=== PATIENT | male | born 1960 | race Caucasian/White ===

== ENCOUNTER 2016-10-17 19:53 | Emergency (ER) | payer MEDICARE, OTHER ==
[2016-10-17 20:23] VITALS: O2SAT 95
[2016-10-17] MEDS ORDERED: Rocephin 1000 MG INJ IM ONE (20:28)
[2016-10-17] MEDS ORDERED: BACIGUENT PACKET TP ONE (20:28)
[2016-10-17] MEDS ORDERED: XYLOCAINE 1% HCL 20 ML MDV IJ ONE (20:28)
[2016-10-17] MEDS ORDERED: BACIGUENT PACKET ONE (20:31)
[2016-10-17] MEDS ORDERED: XYLOCAINE 1% HCL 20 ML MDV ONE (20:31)
[2016-10-17] MEDS ORDERED: Rocephin 1000 MG INJ ONE (20:31)
--- NOTE | 2016-10-17 20:34 | ERPHSYRPT ---
- History of Present Illness Time Seen by Provider: 10/17/16 20:25 Source: patient Exam Limitations: no limitations Patient Subjective Stated Complaint: states that he "laid his right finger open sharpening a chainsaw at 1400 today" - continues to bleed and figures that he needs stitches - also wants to check out a "spider bite" on his right knee that he noticed on the right knee Triage Nursing Assessment: ambulatory to treatment area - steady gait - moves all extremities with equal strength. alert/oriented - flat affect. skin pwd - 3-4cm laceration right 2nd digit, small raised area of redness and tenderness on the right interior knee. resps easy non-labored Physician History: ABOUT 6 HOURS AGO PT LACERATED HIS RIGHT INDEX FINGER ON A CHAIN AT HOME THAT HE WAS FILING FOR A CHAIN SAW. PT ALSO C/O A SPIDER BITE ON HIS RIGHT KNEE SINCE YESTERDAY. PT DENIES FEVER, CHILLS, NAUSEA, VOMITING, CHEST PAIN. Allergies/Adverse Reactions: No Known Drug Allergies Allergy (Verified 10/17/16 20:15) Home Medications: Lisinopril 10 mg [Zestril 10 MG] 10 mg PO DAILY 05/26/13 [History] Aspirin EC 325 mg [Ecotrin 325 MG] 325 mg PO DAILY 12/10/15 [History] Hydrocodone Bit/Acetaminophen [[place] 7.5-325 Tablet] 1 each PO TID 12/10/15 [ History] Gabapentin 600 mg PO TID 10/17/16 [History] Metformin HCl [Glucophage] 1,000 mg PO BID 10/17/16 [History] Hx Tetanus, Diphtheria Vaccination/Date Given: Yes Hx Influenza Vaccination/Date Given: No Hx Pneumococcal Vaccination/Date Given: No Immunizations Up to Date: Yes - Review of Systems Constitutional: No Fever, No Chills Cardiac: No Chest Pain Abdominal/Gastrointestinal: No Nausea, No Vomiting Skin: Other (LACERATION TO RIGHT INDEX FINGER; SPIDER BITE OF RIGHT KNEE.) All Other Systems: Reviewed and Negative - Past Medical History Pertinent Past Medical History: Yes Neurological History: No Pertinent History ENT History: No Pertinent History Cardiac History: Angina, Hypertension, Peripheral Vascular Disease Respiratory History: No Pertinent History Endocrine Medical History: Diabetes Type II Musculoskeletal History: Degenerative Disk Disease, Osteoarthritis, Other GI Medical History: No Pertinent History History: Other Psycho-Social History: No Pertinent History Male Reproductive Disorders: No Pertinent History Other Medical History: kidney stones, pinched nerve,CHRONIC BACK PAIN - Past Surgical History Past Surgical History: Yes Neuro Surgical History: No Pertinent History Cardiac: Cardiac Catheterization, Vascular Surgery Respiratory: No Pertinent History Gastrointestinal: No Pertinent History Genitourinary: No Pertinent History, Other Musculoskeletal: Orthopedic Surgery Male Surgical History: No Pertinent History Other Surgical History: KIDNEY STONE. leg bypass with stent in leg. dental surgery. BACK FUSION SURGERY. neck fusion - Social History Smoking Status: Never smoker How long have you smoked: 42 yrs Exposure to second hand smoke: No Alcohol Use: None Drug Use: none Patient Lives Alone: No Significant Family History: hypertension - Nursing Vital Signs Nursing Vital Signs: Initial Vital Signs Temperature 97.9 F Temperature Source Oral Pulse Rate 80 Respiratory Rate 14 Blood Pressure [Left Arm] 126/78 Pain Intensity 0 - Physical Exam General Appearance: alert Eyes, Ears, Nose, Throat Exam: TMs normal, pharynx normal, moist mucous membranes Neck Exam: normal inspection Cardiovascular/Respiratory Exam: normal breath sounds, heart sounds normal Abdominal Exam: soft (B.S. NORMAL) Back Exam: normal range of motion Shoulder Exam: normal ROM Elbow/Forearm Exam: normal ROM Wrist Exam: normal ROM Hand Exam: normal ROM, laceration (3 CM LACERATION OVER PIP OF RIGHT INDEX FINGER; ALL RIGHT HAND DIGITS HAVE FULL SENSATION, CAPILLARY REFILL AND ROM.) Neuro/Tendon Exam: normal sensation, normal motor functions, normal tendon functions Mental Status Exam: alert Skin Exam: other (RIGHT KNEE HAS A 1 CM DIAMETER INSECT BITE OVER THE ANTERIOMEDIAL ASPECT WITHOUT FLUCTUATION OR DISCHARGE; SCATTERED INSECT BITES OVER LEGS AND BACK.) SpO2 Interpretation: normal SpO2: 95 Oxygen Delivery: Room Air Procedures - Laceration/Wound Repair Right Finger Wound Location: Right, hand (INDEX FINGER) Wound Length (cm): 3 Wound's Depth, Shape: superficial Wound Explored: clean Irrigated: Yes Hibiclens Prep: Yes Anesthesia: 1% Lidocaine Volume Anesthetic (ccs): 2 Wound Repaired With: sutures Suture Size/Type: 4-0, ethilon Number of Sutures: 10 Layer Closure?: No - Course Nursing assessment & vital signs reviewed: Yes Ordered Tests: Active Orders 24 hr Category Date Time Status Prepare for Sutures STAT Care 10/17/16 20:28 Active Sutures STAT Care 10/17/16 20:28 Active Wound Care STAT Care 10/17/16 20:28 Active Medication Summary Discontinued Medications Generic Name Dose Route Start Last Admin Trade Name Melinda PRN Reason Stop Dose Admin Bacitracin 0.9 gm 10/17/16 20:28 10/17/16 20:36 Baciguent Packet TP 10/17/16 20:29 0.9 gm STAT ONE Administration Bacitracin Confirm 10/17/16 20:31 Baciguent Packet Administered 10/17/16 20:32 Dose 1 gm .ROUTE .STK-MED ONE Ceftriaxone Sodium 1,000 mg 10/17/16 20:28 10/17/16 20:36 Rocephin 1000 Mg Inj IM 10/17/16 20:29 1,000 mg STAT ONE Administration Ceftriaxone Sodium Confirm 10/17/16 20:31 Rocephin 1000 Mg Inj Administered 10/17/16 20:32 Dose 1,000 mg .ROUTE .STK-MED ONE Lidocaine HCl 5 ml 10/17/16 20:28 10/17/16 20:36 Xylocaine 1% Hcl 20 Ml Mdv IJ 10/17/16 20:29 5 ml STAT ONE Administration Lidocaine HCl Confirm 10/17/16 20:31 Xylocaine 1% Hcl 20 Ml Mdv Administered 10/17/16 20:32 Dose 1 ml .ROUTE .STK-MED ONE - Departure Time of Disposition: 21:13 Departure Disposition: Home Clinical Impression: 3 CM LACERATION TO RIGHT INDEX FINGER, INSECT BITES Condition: Fair Critical Care Time: No Instructions: Care for a Laceration After Repair Additional Instructions: FOLLOW UP WITH PRIVATE DOCTOR TOMORROW. KEEP CLEAN & DRY. NEOSPORIN & BANDAGE DAILY TO RIGHT INDEX FINGER WOUND FOR 10 DAYS. HAVE SUTURES REMOVED IN 10 DAYS. Prescriptions: Cephalexin Monohydrate [Keflex] 500 mg PO TID #30 capsule
[2016-10-17 21:17] VITALS: BP 120/73; PULSE 72
== END 2016-10-17 21:23 | disposition home or self-care (01) ==
LOC: ED 19:53
PROC: 0HQFXZZ Repair Right Hand Skin, External Approach (ICD-10-PCS; principal; 2016-10-17)
DX: S61.210A Laceration without foreign body of right index finger without damage to nail, initial encounter (principal); W31.2XXA Contact with powered woodworking and forming machines, initial encounter; S80.261A Insect bite (nonvenomous), right knee, initial encounter; W57.XXXA Bitten or stung by nonvenomous insect and other nonvenomous arthropods, initial encounter
CPT/HCPCS: 12002; 96372; 99284; J0696; A9270-GY

== ENCOUNTER 2016-10-28 19:57 | Emergency (ER) | payer MEDICARE, OTHER ==
--- NOTE | 2016-10-28 20:56 | ERPHSYRPT ---
- History of Present Illness Time Seen by Provider: 10/28/16 20:37 Source: patient Exam Limitations: no limitations Physician History: The patient is a 56-year-old male with a friend complaining of a sudden onset of left leg pain that is similar to the pain he had when he had arterial claudication. The pain began about an hour ago. It stretches from the top of his leg down to his feet. His left foot is slightly cool to the touch. He had an artificial vein placed in his left upper leg in April. 2 or 3 months before that he also had a stent placed in his left upper leg. He's had a balloon angioplasty of the left upper leg as well. He is a smoker and continues to smoke. His past medical history is significant for peripheral arterial disease, diabetes, hypertension, chronic back pain. Method of Injury: unknown Occurred: just prior to arrival Quality: sharpness, stabbing Severity of Pain-Max: moderate Severity of Pain-Current: mild Lower Extremities Pain: leg: left, thigh: left, foot: left, ankle: left Modifying Factors: Improves With: nothing Associated Symptoms: other (pale and cool) Allergies/Adverse Reactions: morphine Adverse Reaction (Verified 10/28/16 20:51) Tightness in Chest tramadol Adverse Reaction (Verified 10/28/16 20:51) Home Medications: Lisinopril 10 mg [Zestril 10 MG] 10 mg PO BID 05/26/13 [History] Aspirin EC 325 mg [Ecotrin 325 MG] 325 mg PO DAILY 12/10/15 [History] Hydrocodone Bit/Acetaminophen [[place] 7.5-325 Tablet] 1 each PO TID 12/10/15 [ History] Gabapentin 600 mg PO TID 10/17/16 [History] Metformin HCl [Glucophage] 1,000 mg PO BID 10/17/16 [History] Hx Tetanus, Diphtheria Vaccination/Date Given: Yes Hx Influenza Vaccination/Date Given: No Hx Pneumococcal Vaccination/Date Given: No - Review of Systems Constitutional: No Fever, No Chills Eyes: No Symptoms Ears, Nose, & Throat: No Symptoms Respiratory: No Cough, No Dyspnea Cardiac: No Chest Pain, No Edema, No Syncope Abdominal/Gastrointestinal: No Abdominal Pain, No Nausea, No Vomiting, No Diarrhea Genitourinary Symptoms: No Dysuria Musculoskeletal: No Back Pain, No Neck Pain Skin: No Rash Neurological: No Dizziness, No Focal Weakness, No Sensory Changes Psychological: No Symptoms Endocrine: No Symptoms Hematologic/Lymphatic: Blood Clots Immunological/Allergic: No Symptoms All Other Systems: Reviewed and Negative - Past Medical History Pertinent Past Medical History: Yes Neurological History: No Pertinent History ENT History: No Pertinent History Cardiac History: Angina, Hypertension, Peripheral Vascular Disease Respiratory History: No Pertinent History Endocrine Medical History: Diabetes Type II Musculoskeletal History: Degenerative Disk Disease, Osteoarthritis, Other GI Medical History: No Pertinent History History: Other Psycho-Social History: No Pertinent History Male Reproductive Disorders: No Pertinent History Other Medical History: kidney stones, pinched nerve,CHRONIC BACK PAIN - Past Surgical History Past Surgical History: Yes Neuro Surgical History: No Pertinent History Cardiac: Cardiac Catheterization, Vascular Surgery Respiratory: No Pertinent History Gastrointestinal: No Pertinent History Genitourinary: No Pertinent History, Other Musculoskeletal: Orthopedic Surgery Male Surgical History: No Pertinent History Other Surgical History: KIDNEY STONE. leg bypass with stent in leg. dental surgery. BACK FUSION SURGERY. neck fusion - Social History Smoking Status: Never smoker How long have you smoked: 42 yrs Exposure to second hand smoke: No Alcohol Use: None Drug Use: none Patient Lives Alone: No Significant Family History: hypertension - Nursing Vital Signs Nursing Vital Signs: Initial Vital Signs Temperature 98.5 F Temperature Source Oral Pulse Rate 71 Respiratory Rate 18 Blood Pressure [Right Arm] 141/84 Pain Intensity [Left Foot] 10 Pain Intensity 7 - Physical Exam General Appearance: mild distress Eyes, Ears, Nose, Throat Exam: moist mucous membranes Neck Exam: non-tender, supple Cardiovascular/Respiratory Exam: chest non-tender, normal breath sounds, regular rate/rhythm, no respiratory distress Gastrointestinal/Abdominal Exam: non-tender, guarding Back Exam: normal inspection, No vertebral tenderness Hips Exam: bilateral: non-tender Legs Exam: bilateral leg: non-tender Knees Exam: bilateral knee: non-tender Ankle Exam: left ankle: other (Examination of the left leg when supine shows increasing purple color of the leg from the knee to the toes the longer the leg is elevated. The left foot is slightly cool compared to the right foot. Doppler evaluation is unable to identify a pulse at the dorsalis pedis and the posterior tibialis of the left foot.) Neuro/Tendon Exam: normal sensation, normal motor functions Mental Status Exam: alert, oriented x 3, cooperative Skin Exam: pale (left leg) Ordered Tests: Active Orders 24 hr Category Date Time Status IV Insertion STAT Care 10/28/16 21:05 Active CBC W DIFF Stat Lab 10/28/16 21:10 Completed CMP Stat Lab 10/28/16 21:10 Completed D-DIMER QUANTITATION Stat Lab 10/28/16 21:10 Completed Lactic Acid Stat Lab 10/28/16 21:10 Completed PT INR [PROTIME WITH INR] Stat Lab 10/28/16 21:10 Completed PTT Stat Lab 10/28/16 21:10 Completed Medication Summary Discontinued Medications Generic Name Dose Route Start Last Admin Trade Name Melinda PRN Reason Stop Dose Admin Nalbuphine HCl 10 mg 10/28/16 21:43 10/28/16 21:48 Nubain 10 Mg/Ml IV 10/28/16 21:44 10 mg STAT ONE Administration Nalbuphine HCl Confirm 10/28/16 21:45 Nubain 10 Mg/Ml Administered 10/28/16 21:46 Dose 10 mg .ROUTE .STK-MED ONE Lab/Rad Data: Laboratory Result Diagrams 10/28/16 21:10 10/28/16 21:10 Laboratory Results 10/28/16 10/28/16 10/28/16 Range/Units 21:10 21:10 21:10 WBC (4.0-10.5) K/mm3 RBC (4.1-5.6) M/mm3 Hgb (12.5-18.0) gm/dl Hct (42-50) % MCV (78-100) fl MCH (26-32) pg MCHC (32-36) g/dl RDW (11.5-14.0) % Plt Count (150-450) K/mm3 MPV (6-9.5) fl Gran % (36.0-66.0) % Lymphocytes % (24.0-44.0) % Monocytes % (0.0-12.0) % Eosinophils % (0.00-5.0) % Basophils % (0.0-0.4) % Basophils # (0-0.4) INR 1.10 (0.8-3.0) APTT 27.0 (24.1-36.1) SECONDS D-Dimer 5731 H* (0-500) ng/mL Sodium 145 (136-145) mEq/L Potassium 4.2 (3.5-5.1) mEq/L Chloride 106 (98-107) mEq/L Carbon Dioxide 27.1 (21-32) mEq/L Anion Gap 15.8 H (5-15) MEQ/L BUN 26 H (9-20) mg/dL Creatinine 1.17 (0.55-1.30) mg/dl Estimated GFR > 60 ML/MIN Glucose 88 (70-110) MG/DL Lactic Acid (0.4-2.0) Calcium 10.1 (8.5-10.1) mg/dL Total Bilirubin 0.30 (0.2-1.0) mg/dL AST 21 (15-37) U/L ALT 21 (12-78) U/L Alkaline Phosphatase 52 (46-116) U/L Serum Total Protein 7.0 (6.4-8.2) gm/dL Albumin 3.8 (3.4-5.0) g/dL 10/28/16 10/28/16 Range/Units 21:10 21:10 WBC 13.2 H (4.0-10.5) K/mm3 RBC 4.48 (4.1-5.6) M/mm3 Hgb 13.7 (12.5-18.0) gm/dl Hct 41.0 L (42-50) % MCV 91.5 (78-100) fl MCH 30.6 (26-32) pg MCHC 33.4 (32-36) g/dl RDW 14.9 H (11.5-14.0) % Plt Count 222 (150-450) K/mm3 MPV 9.8 H (6-9.5) fl Gran % 55.8 (36.0-66.0) % Lymphocytes % 30.4 (24.0-44.0) % Monocytes % 10.7 (0.0-12.0) % Eosinophils % 2.6 (0.00-5.0) % Basophils % 0.5 (0.0-0.4) % Basophils # 0.07 (0-0.4) INR (0.8-3.0) APTT (24.1-36.1) SECONDS D-Dimer (0-500) ng/mL Sodium (136-145) mEq/L Potassium (3.5-5.1) mEq/L Chloride (98-107) mEq/L Carbon Dioxide (21-32) mEq/L Anion Gap (5-15) MEQ/L BUN (9-20) mg/dL Creatinine (0.55-1.30) mg/dl Estimated GFR ML/MIN Glucose (70-110) MG/DL Lactic Acid 0.9 (0.4-2.0) Calcium (8.5-10.1) mg/dL Total Bilirubin (0.2-1.0) mg/dL AST (15-37) U/L ALT (12-78) U/L Alkaline Phosphatase (46-116) U/L Serum Total Protein (6.4-8.2) gm/dL Albumin (3.4-5.0) g/dL - Progress Progress: improved Progress Note: 10/28/16 22:20 After resting in the ER, the patient began to feel better. The patient refused transfer to a higher level care facility. The patient states he will go home and call Dr. Mcmahon for follow-up. 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 You have declined transfer tonight for such further evaluation and treatment. You were given Nubain 10 mg IV in the ER. Please follow-up tomorrow with a surgeon.
[2016-10-28 21:15] LABS: BASOPHIL % 0.5 % (0.0-0.4); Eosinophil % 2.6 % (0.00-5.0); Granulocytes % 55.8 % (36.0-66.0); Lymphocytes % 30.4 % (24.0-44.0); Mean Cell Volume 91.5 fl (78-100); Mean Corpuscular Hemoglobin 30.6 pg (26-32); Mean Platelet Volume 9.8 fl (6-9.5); Monocytes % 10.7 % (0.0-12.0); Platelet Count 222 K/mm3 (150-450); Red Blood Count 4.48 M/mm3 (4.1-5.6); Red Cell Distribution Width 14.9 % (11.5-14.0); White Blood Count 13.2 K/mm3 (4.0-10.5)
[2016-10-28 21:42] VITALS: BP 141/84; PULSE 71; O2SAT 95
[2016-10-28] MEDS ORDERED: Nubain 10 MG/ML IV ONE (21:43)
[2016-10-28 21:44] LABS: INR 1.1 (0.8-3.0); PROTIME 12.4 SECONDS (8.83-12.87)
[2016-10-28] MEDS ORDERED: Nubain 10 MG/ML ONE (21:45)
[2016-10-28 21:52] LABS: ALBUMIN 3.8 g/dL (3.4-5.0); ALKALINE PHOSPHATASE 52 U/L (46-116); ANION GAP 15.8 MEQ/L (5-15); BLOOD UREA NITROGEN 26 mg/dL (9-20); CHLORIDE 106 mEq/L (98-107); Carbon Dioxide 27.1 mEq/L (21-32); Glucose 88 MG/DL (70-110); Potassium 4.2 mEq/L (3.5-5.1); SGOT/AST 21 U/L (15-37); SGPT/ALT 21 U/L (12-78); SODIUM 145 mEq/L (136-145)
== END 2016-10-28 22:32 | disposition home or self-care (01) ==
LOC: ED 19:57
DX: I70.212 Atherosclerosis of native arteries of extremities with intermittent claudication, left leg (principal); I10 Essential (primary) hypertension; I73.9 Peripheral vascular disease, unspecified; M79.605 Pain in left leg
CPT/HCPCS: 36000; 36415; 80053; 83605; 85025; 85379; 85610; 85730; 96374; 99283; 99284; J2300

== ENCOUNTER 2016-11-10 16:06 | Emergency (ER) | payer MEDICARE, OTHER ==
[2016-11-10] MEDS ORDERED: BENADRYL 50 MG/ML IV ONE (16:32)
[2016-11-10] MEDS ORDERED: Hydromorphone 1 mg/ml Ampule IV ONE ×2 (16:32→17:57)
[2016-11-10] MEDS ORDERED: Hydromorphone 1 mg/ml Ampule ONE ×2 (16:46→17:58)
[2016-11-10] MEDS ORDERED: BENADRYL 50 MG/ML ONE (16:46)
--- NOTE | 2016-11-10 17:19 | ERPHSYRPT ---
- History of Present Illness Time Seen by Provider: 11/10/16 16:18 Source: patient Patient Subjective Stated Complaint: pt states he had vascular surgery to remove a dvt in left leg. pt states he now has swelling and pain in left foot. denies any injury. Triage Nursing Assessment: pt pale, warm, dry. insicion intact. wound vac in place. swelling to left foot noted. Physician History: CC: swelling of the foot hx: 56 y/o patient of Dr Magana. He had recent arterial occlusion of left leg arteries and grafts. He had compartment syndrome. He had fasciotomy and had surgical procedures at [facility] and has wound vac. He was supposed to go home on xarelto but has not filled it. He has [facility]HC. He has some increased swelling of the left foot. No fever. Wound doing well. No chest pain or dyspnea. Pain is doing ok. Allergies/Adverse Reactions: morphine Adverse Reaction (Verified 11/10/16 16:27) Tightness in Chest tramadol Adverse Reaction (Verified 11/10/16 16:27) Home Medications: Lisinopril 10 mg [Zestril 10 MG] 10 mg PO BID 05/26/13 [History] Aspirin EC 325 mg [Ecotrin 325 MG] 325 mg PO DAILY 12/10/15 [History] Gabapentin 600 mg PO TID 10/17/16 [History] Metformin HCl [Glucophage] 1,000 mg PO BID 10/17/16 [History] Oxycodone HCl/Acetaminophen [Oxycodon-Acetaminophen 7.5-325] 2 each PO Q6-8HPRN PRN 11/10/16 [History] Hx Tetanus, Diphtheria Vaccination/Date Given: Yes Hx Influenza Vaccination/Date Given: Yes Hx Pneumococcal Vaccination/Date Given: Yes - Review of Systems Constitutional: No Fever, No Chills Respiratory: No Dyspnea Cardiac: No Chest Pain Musculoskeletal: No Fall, No Injury All Other Systems: Reviewed and Negative - Past Medical History Pertinent Past Medical History: Yes Neurological History: No Pertinent History ENT History: No Pertinent History Cardiac History: Angina, Hypertension, Peripheral Vascular Disease Respiratory History: No Pertinent History Endocrine Medical History: Diabetes Type II Musculoskeletal History: Degenerative Disk Disease, Osteoarthritis, Other GI Medical History: No Pertinent History History: Other Psycho-Social History: No Pertinent History Male Reproductive Disorders: No Pertinent History Other Medical History: kidney stones, pinched nerve,CHRONIC BACK PAIN - Past Surgical History Past Surgical History: Yes Neuro Surgical History: No Pertinent History Cardiac: Cardiac Catheterization, Vascular Surgery Respiratory: No Pertinent History Gastrointestinal: No Pertinent History Genitourinary: No Pertinent History, Other Musculoskeletal: Orthopedic Surgery Male Surgical History: No Pertinent History Other Surgical History: KIDNEY STONE. leg bypass with stent in leg. dental surgery. BACK FUSION SURGERY. neck fusion - Social History Smoking Status: Former smoker How long have you smoked: 42 yrs Exposure to second hand smoke: No Alcohol Use: None Drug Use: none Patient Lives Alone: No Significant Family History: hypertension - Nursing Vital Signs Nursing Vital Signs: Initial Vital Signs Temperature 97.9 F 11/10/16 16:15 Pulse Rate 76 11/10/16 16:15 Respiratory Rate 18 11/10/16 16:15 Blood Pressure 146/87 11/10/16 16:15 O2 Sat by Pulse Oximetry 98 11/10/16 16:15 Pain Scale Pain Intensity 9 - Physical Exam General Appearance: alert Eyes, Ears, Nose, Throat Exam: moist mucous membranes Neck Exam: supple Cardiovascular/Respiratory Exam: normal breath sounds, regular rate/rhythm Gastrointestinal/Abdominal Exam: non-tender, soft Neuro/Tendon Exam: normal sensation, normal motor functions Mental Status Exam: alert, oriented x 3, cooperative Skin Exam: warm, dry SpO2: 96 Oxygen Delivery: Room Air Comments: Wound vac on long length left leg. There is edema of the left foot and some of the leg. Not tight. Minimal erythema along incision line. Femoral pulse intact. DP pulse dopplerable but not palpable. PT pulse palpable. No severe pain with passive movement of the ankle. - Course Nursing assessment & vital signs reviewed: Yes Ordered Tests: Active Orders 24 hr Category Date Time Status Clean Catch Urine Specimen STAT Care 11/10/16 16:32 Active IV Insertion STAT Care 11/10/16 16:32 Active CBC W DIFF Stat Lab 11/10/16 16:45 Completed CMP Stat Lab 11/10/16 16:45 Completed Manual Differential NC Stat Lab 11/10/16 16:45 Completed UA W/RFX UR CULTURE Stat Lab 11/10/16 17:22 Completed Medication Summary Discontinued Medications Generic Name Dose Route Start Last Admin Trade Name Freq PRN Reason Stop Dose Admin Diphenhydramine HCl 25 mg 11/10/16 16:32 11/10/16 16:47 Benadryl 50 Mg/Ml IV 11/10/16 16:33 25 mg STAT ONE Administration Diphenhydramine HCl Confirm 11/10/16 16:46 Benadryl 50 Mg/Ml Administered 11/10/16 16:47 Dose 50 mg .ROUTE .STK-MED ONE Hydromorphone HCl 1 mg 11/10/16 16:32 11/10/16 16:47 Hydromorphone 1 Mg/Ml Ampule IV 11/10/16 16:33 1 mg STAT ONE Administration Hydromorphone HCl Confirm 11/10/16 16:46 Hydromorphone 1 Mg/Ml Ampule Administered 11/10/16 16:47 Dose 1 mg .ROUTE .STK-MED ONE Hydromorphone HCl 1 mg 11/10/16 17:57 11/10/16 18:02 Hydromorphone 1 Mg/Ml Ampule IV 11/10/16 17:58 1 mg STAT ONE Administration Hydromorphone HCl Confirm 11/10/16 17:58 Hydromorphone 1 Mg/Ml Ampule Administered 11/10/16 17:59 Dose 1 mg .ROUTE .STK-MED ONE Lab/Rad Data: Laboratory Result Diagrams 11/10/16 16:45 11/10/16 16:45 Laboratory Results 11/10/16 11/10/16 11/10/16 Range/Units 17:22 16:45 16:45 WBC 11.5 H (4.0-10.5) K/mm3 RBC 3.32 L (4.1-5.6) M/mm3 Hgb 10.1 L (12.5-18.0) gm/dl Hct 30.9 L (42-50) % MCV 93.1 (78-100) fl MCH 30.4 (26-32) pg MCHC 32.7 (32-36) g/dl RDW 14.2 H (11.5-14.0) % Plt Count 703 H (150-450) K/mm3 MPV 9.3 (6-9.5) fl Sodium 139 (136-145) mEq/L Potassium 3.9 (3.5-5.1) mEq/L Chloride 103 (98-107) mEq/L Carbon Dioxide 28.0 (21-32) mEq/L Anion Gap 12.1 (5-15) MEQ/L BUN 13 (9-20) mg/dL Creatinine 1.18 (0.55-1.30) mg/dl Estimated GFR > 60 ML/MIN Glucose 87 (70-110) MG/DL Calcium 9.1 (8.5-10.1) mg/dL Total Bilirubin 0.20 (0.2-1.0) mg/dL AST 38 H (15-37) U/L ALT 54 (12-78) U/L Alkaline Phosphatase 92 (46-116) U/L Serum Total Protein 6.8 (6.4-8.2) gm/dL Albumin 2.8 L (3.4-5.0) g/dL Ur Collection Type CLEAN CATCH Urine Color YELLOW (YELLOW) Urine Appearance CLEAR (CLEAR) Urine pH 5.0 (5-6) Ur Specific [place] 1.020 (1.005-1.025) Urine Protein NEGATIVE (Negative) Urine Ketones NEGATIVE (NEGATIVE) Urine Blood NEGATIVE (0-5) Rusty/ul Urine Nitrite NEGATIVE (NEGATIVE) Urine Bilirubin NEGATIVE (NEGATIVE) Urine Urobilinogen NORMAL (0-1) mg/dL Ur Leukocyte Esterase NEGATIVE (NEGATIVE) Urine Glucose NEGATIVE (NEGATIVE) mg/dL Specimen Received 11/10/16 1730 - Progress Progress Note: 11/10/16 18:38 Pt stable. Foot pink and warm. He has chornic pain syndrome, nothing out of the ordinary. He might have DVT but needs to be on xarelto. Dose given here. He will get it first thing in AM, have [facility] check leg in AM, and return for problems. Informed Dr Magana of plan. Counseled pt/family regarding: lab results, diagnosis, need for follow-up - Departure Time of Disposition: 18:39 Departure Disposition: Home Clinical Impression: Leg edema, left, post op arterial vascular occlusion Condition: Stable Critical Care Time: No Referrals: KASSI MAGANA [Primary Care Provider] - Instructions: Peripheral Edema, Unilateral Additional Instructions: Elevate legs. You need to get xarelto and start it in AM. Have [facility] check leg in AM and call report to Dr Magana. Return for trouble breathing, fever, cold or blue leg, problems or concerns.
[2016-11-10] MEDS ORDERED: XARELTO 10 MG TABLET PO ONE (17:21)
[2016-11-10 17:34] LABS: ADD URINE CULTURE? NO (NO); Bilirubin NEGATIVE (NEGATIVE); Blood NEGATIVE Ery/ul (0-5); COMPLETE URINE MICROSCOPIC? NO; Collection Type CLEAN CATCH; Glucose NEGATIVE (NEGATIVE); Leukocyte Esterase NEGATIVE (NEGATIVE)
[2016-11-10 17:46] LABS: Mean Cell Volume 93.1 fl (78-100); Mean Corpuscular Hemoglobin 30.4 pg (26-32); Mean Platelet Volume 9.3 fl (6-9.5); Platelet Count 703 K/mm3 (150-450); Red Blood Count 3.32 M/mm3 (4.1-5.6); Red Cell Distribution Width 14.2 % (11.5-14.0); White Blood Count 11.5 K/mm3 (4.0-10.5)
[2016-11-10 18:13] LABS: ALBUMIN 2.8 g/dL (3.4-5.0); ALKALINE PHOSPHATASE 92 U/L (46-116); ANION GAP 12.1 MEQ/L (5-15); BLOOD UREA NITROGEN 13 mg/dL (9-20); CHLORIDE 103 mEq/L (98-107); Glucose 87 MG/DL (70-110); Potassium 3.9 mEq/L (3.5-5.1); SGOT/AST 38 U/L (15-37); SGPT/ALT 54 U/L (12-78); SODIUM 139 mEq/L (136-145); Total Protein 6.8 gm/dL (6.4-8.2)
[2016-11-10 18:59] VITALS: BP 180/85; PULSE 78; O2SAT 98
[2016-11-10 19:23] LABS: ATYPICAL LYMPHS 2 %; BAND 2 % (0.0-2.0); Metamyelocyte 1 %; Platelet Estimate NORMAL (NORMAL); Polychromasia 1+; Total Cells Counted 100
== END 2016-11-10 19:00 | disposition home or self-care (01) ==
LOC: ED 16:06
DX: R60.9 Edema, unspecified (principal); Z79.899 Other long term (current) drug therapy; M79.605 Pain in left leg; M79.672 Pain in left foot
CPT/HCPCS: 36000; 36415; 80053; 81002; 85025; 96374; 96375; 96376; 99284; J1170; J1200; A9270-GY

== ENCOUNTER 2016-11-25 02:26 | Emergency (ER) | payer MEDICARE ==
[2016-11-25] MEDS ORDERED: BABY ASPIRIN 81 MG CHEW PO ONE (03:19)
[2016-11-25] MEDS ORDERED: Nitrostat 0.4 MG (ED) SL ONE ×2 (03:19→06:36)
--- NOTE | 2016-11-25 03:48 | ERPHSYRPT ---
- History of Present Illness Time Seen by Provider: 11/25/16 02:50 Source: patient Exam Limitations: no limitations Patient Subjective Stated Complaint: CAME IN TO ER BECAUSE HRECENTLY ASTARTED ON FENTANYL PATCH AND IS HAVING PAIN IN HIS THRAOT SHORTNESS OF BREATH AND SOME PAIN IN HIS ARM Triage Nursing Assessment: PT ALERTAND ORIENTED X3, AMBULATES WELL, GAIT IS SOMEWHAT STEADY HAS A RECENT SURGERY ON THE LEFT LEG, SKIN CLEAN, DRY, AND INTACT, LUNG SOUNDS CLEAR, SPEECH IS CLEAR, PULSES PRESENT BILATERAL RADIUS. Physician History: FOR THE PAST 3 HOURS PT HAS HAD A HEADACHE, PAIN IN THE LEFT UPPER ARM WHERE HIS FENTANYL PATCH IS LOCATED, CHEST PAIN, ABDOMINAL CRAMPS AND DIAPHORESIS. PT REPORTEDLY STARTED THE FENTANYL PATCH 38 HOURS AGO. PT STATES HE WAS AT [facility] AND HAD OPERATIONS ON HIS LEFT LOWER EXTREMITY ON 10/29/16 & 10/30/16 WHERE THEY REMOVED BLOOD CLOTS FROM HIS LEFT GROIN AND LEFT LEG. PT CAN FEEL HIS LEFT FOOT. Allergies/Adverse Reactions: morphine Adverse Reaction (Verified 11/10/16 16:27) Tightness in Chest tramadol Adverse Reaction (Verified 11/10/16 16:27) Home Medications: Lisinopril 10 mg [Zestril 10 MG] 10 mg PO BID 05/26/13 [History] Aspirin EC 325 mg [Ecotrin 325 MG] 325 mg PO DAILY 12/10/15 [History] Gabapentin 600 mg PO TID 10/17/16 [History] Metformin HCl [Glucophage] 1,000 mg PO BID 10/17/16 [History] Oxycodone HCl/Acetaminophen [Oxycodon-Acetaminophen 7.5-325] 2 each PO Q6-8HPRN PRN 11/10/16 [History] Hx Tetanus, Diphtheria Vaccination/Date Given: Yes Hx Influenza Vaccination/Date Given: Yes Hx Pneumococcal Vaccination/Date Given: Yes Immunizations Up to Date: Yes - Review of Systems Constitutional: No Fever Cardiac: Chest Pain Abdominal/Gastrointestinal: Abdominal Pain Musculoskeletal: Other (LEFT ARM PAIN) Neurological: Headache Endocrine: Excessive Sweating All Other Systems: Reviewed and Negative - Past Medical History Pertinent Past Medical History: Yes Neurological History: No Pertinent History ENT History: No Pertinent History Cardiac History: Angina, Hypertension, Peripheral Vascular Disease Respiratory History: No Pertinent History Endocrine Medical History: Diabetes Type II Musculoskeletal History: Degenerative Disk Disease, Osteoarthritis, Other GI Medical History: No Pertinent History History: Other Psycho-Social History: No Pertinent History Male Reproductive Disorders: No Pertinent History Other Medical History: kidney stones, pinched nerve,CHRONIC BACK PAIN - Past Surgical History Past Surgical History: Yes Neuro Surgical History: No Pertinent History Cardiac: Cardiac Catheterization, Vascular Surgery Respiratory: No Pertinent History Gastrointestinal: No Pertinent History Genitourinary: No Pertinent History, Other Musculoskeletal: Orthopedic Surgery Male Surgical History: No Pertinent History Other Surgical History: KIDNEY STONE. leg bypass with stent in leg. dental surgery. BACK FUSION SURGERY. neck fusion - Social History Smoking Status: Former smoker How long have you smoked: 42 yrs Exposure to second hand smoke: No Alcohol Use: None Drug Use: none Patient Lives Alone: No Significant Family History: hypertension - Nursing Vital Signs Nursing Vital Signs: Initial Vital Signs Temperature 98.8 F 11/25/16 02:26 Pulse Rate 87 11/25/16 02:26 Respiratory Rate 18 11/25/16 02:26 Blood Pressure 141/76 11/25/16 02:26 O2 Sat by Pulse Oximetry 97 11/25/16 02:26 Pain Scale Pain Intensity 8 - Physical Exam General Appearance: alert Eye Exam: PERRL/EOMI Ears, Nose, Throat Exam: pharynx normal, moist mucous membranes Neck Exam: normal inspection Respiratory Exam: lungs clear Cardiovascular Exam: normal heart sounds Gastrointestinal/Abdomen Exam: soft, normal bowel sounds Back Exam: normal range of motion Extremity Exam: other (~ 9 INCH X 2 INCH HEALING ULCER ON THE LEFT LEG; STAPLED INCISION FROM THE LEFT INGUINAL AREA TO THE DISTAL LEFT LEG HEALING WELL. +1 DP PULSES IN BOTH FEET.) Neurologic Exam: alert, cooperative Skin Exam: warm, dry SpO2 Interpretation: normal SpO2: 98 Oxygen Delivery: Room Air - Course Nursing assessment & vital signs reviewed: Yes EKG Interpreted by Me: RATE (83), Sinus Rhythm, NORMAL AXIS, NORMAL INTERVALS - Radiology Exams Chest X-ray Interpretation: Interpreted by me, No Pneumonia Ordered Tests: Active Orders 24 hr Category Date Time Status Business Banking Relationship Manager STAT Care 11/25/16 03:19 Active Clean Catch Urine Specimen STAT Care 11/25/16 03:19 Active EKG-ER Only STAT Care 11/25/16 03:19 Active IV Insertion STAT Care 11/25/16 03:19 Active Wound Care STAT Care 11/25/16 03:22 Active CHEST 1 VIEW (PORTABLE) Stat Exams 11/25/16 03:20 Taken AMYLASE Stat Lab 11/25/16 03:45 Completed CBC W DIFF Stat Lab 11/25/16 03:45 Completed CMP Stat Lab 11/25/16 03:45 Completed LIPASE Stat Lab 11/25/16 03:45 Completed MAGNESIUM Stat Lab 11/25/16 03:45 Completed PROTIME WITH INR Stat Lab 11/25/16 03:45 Completed PTT Stat Lab 11/25/16 03:45 Completed TROPONIN Q3H Lab 11/25/16 03:45 Completed TROPONIN Q3H Lab 11/25/16 06:30 Ordered TROPONIN Q3H Lab 11/25/16 09:30 Ordered TROPONIN Q3H Lab 11/25/16 12:30 Ordered TROPONIN Q3H Lab 11/25/16 15:30 Ordered UA W/ MICROSCOPIC Stat Lab 11/25/16 03:39 Completed Urine Triage Profile Stat Lab 11/25/16 03:39 Completed Medication Summary Generic Name Dose Route Start Last Admin Trade Name Freq PRN Reason Stop Dose Admin Magnesium Oxide 400 mg 11/25/16 10:00 Mag-Ox 400 PO 12/25/16 09:59 BID TERRENCE Discontinued Medications Generic Name Dose Route Start Last Admin Trade Name Freq PRN Reason Stop Dose Admin Aspirin 324 mg 11/25/16 03:19 11/25/16 03:28 Baby Aspirin 81 Mg Chew PO 11/25/16 03:20 324 mg STAT ONE Administration Ketorolac Tromethamine 30 mg 11/25/16 04:41 Toradol 30 Mg Injection IV 11/25/16 04:42 STAT ONE Nitroglycerin 0.4 mg 11/25/16 03:19 11/25/16 03:28 Nitrostat 0.4 Mg (Ed) SL 11/25/16 03:20 0.4 mg STAT ONE Administration Lab/Rad Data: Laboratory Result Diagrams 11/25/16 03:45 11/25/16 03:45 Laboratory Results 11/25/16 11/25/16 11/25/16 Range/Units 03:45 03:45 03:45 WBC (4.0-10.5) K/mm3 RBC (4.1-5.6) M/mm3 Hgb (12.5-18.0) gm/dl Hct (42-50) % MCV (78-100) fl MCH (26-32) pg MCHC (32-36) g/dl RDW (11.5-14.0) % Plt Count (150-450) K/mm3 MPV (6-9.5) fl Gran % (36.0-66.0) % Lymphocytes % (24.0-44.0) % Monocytes % (0.0-12.0) % Eosinophils % (0.00-5.0) % Basophils % (0.0-0.4) % Basophils # (0-0.4) INR 1.21 (0.8-3.0) APTT 31.4 (24.1-36.1) SECONDS Sodium 139 (136-145) mEq/L Potassium 3.8 (3.5-5.1) mEq/L Chloride 103 (98-107) mEq/L Carbon Dioxide 26.4 (21-32) mEq/L Anion Gap 13.8 (5-15) MEQ/L BUN 11 (9-20) mg/dL Creatinine 0.93 (0.55-1.30) mg/dl Estimated GFR > 60 ML/MIN Glucose 102 (70-110) MG/DL Calcium 9.2 (8.5-10.1) mg/dL Magnesium 1.7 L (1.8-2.4) mg/dL Total Bilirubin 0.30 (0.2-1.0) mg/dL AST 14 L (15-37) U/L ALT 18 (12-78) U/L Alkaline Phosphatase 54 (46-116) U/L Troponin I < 0.017 (0.000-0.056) ng/ml Serum Total Protein 7.0 (6.4-8.2) gm/dL Albumin 3.2 L (3.4-5.0) g/dL Amylase 56 (25-115) U/L Lipase 250 (73-393) U/L Ur Collection Type Urine Color (YELLOW) Urine Appearance (CLEAR) Urine pH (5-6) Ur Specific Artemas (1.005-1.025) Urine Protein (Negative) Urine Ketones (NEGATIVE) Urine Blood (0-5) Rusty/ul Urine Nitrite (NEGATIVE) Urine Bilirubin (NEGATIVE) Urine Urobilinogen (0-1) mg/dL Ur Leukocyte Esterase (NEGATIVE) Urine Microscopic RBC (0-2) /HPF Urine Microscopic WBC (0-5) /HPF Ur Epithelial Cells (FEW) /HPF Urine Bacteria (NEGATIVE) /HPF Urine Glucose (NEGATIVE) mg/dL Urine Opiates Level (NEGATIVE) Ur Methadone (NEGATIVE) Urine Barbiturates (NEGATIVE) Ur Phencyclidine (PCP) (NEGATIVE) Urine Amphetamine (NEGATIVE) U Benzodiazepine Level (NEGATIVE) Urine Cocaine (NEGATIVE) Urine Marijuana (THC) (NEGATIVE) Specimen Received 11/25/16 11/25/16 11/25/16 Range/Units 03:45 03:39 03:39 WBC 10.0 (4.0-10.5) K/mm3 RBC 3.79 L (4.1-5.6) M/mm3 Hgb 11.3 L (12.5-18.0) gm/dl Hct 34.8 L (42-50) % MCV 91.8 (78-100) fl MCH 29.8 (26-32) pg MCHC 32.5 (32-36) g/dl RDW 14.9 H (11.5-14.0) % Plt Count 303 (150-450) K/mm3 MPV 8.8 (6-9.5) fl Gran % 48.8 (36.0-66.0) % Lymphocytes % 31.6 (24.0-44.0) % Monocytes % 13.3 H (0.0-12.0) % Eosinophils % 5.5 H (0.00-5.0) % Basophils % 0.8 (0.0-0.4) % Basophils # 0.08 (0-0.4) INR (0.8-3.0) APTT (24.1-36.1) SECONDS Sodium (136-145) mEq/L Potassium (3.5-5.1) mEq/L Chloride (98-107) mEq/L Carbon Dioxide (21-32) mEq/L Anion Gap (5-15) MEQ/L BUN (9-20) mg/dL Creatinine (0.55-1.30) mg/dl Estimated GFR ML/MIN Glucose (70-110) MG/DL Calcium (8.5-10.1) mg/dL Magnesium (1.8-2.4) mg/dL Total Bilirubin (0.2-1.0) mg/dL AST (15-37) U/L ALT (12-78) U/L Alkaline Phosphatase (46-116) U/L Troponin I (0.000-0.056) ng/ml Serum Total Protein (6.4-8.2) gm/dL Albumin (3.4-5.0) g/dL Amylase (25-115) U/L Lipase (73-393) U/L Ur Collection Type VOID Urine Color YELLOW (YELLOW) Urine Appearance CLEAR (CLEAR) Urine pH 6.0 (5-6) Ur Specific Artemas 1.015 (1.005-1.025) Urine Protein NEGATIVE (Negative) Urine Ketones NEGATIVE (NEGATIVE) Urine Blood TRACE NON-HEM (0-5) Rusty/ul Urine Nitrite NEGATIVE (NEGATIVE) Urine Bilirubin NEGATIVE (NEGATIVE) Urine Urobilinogen NORMAL (0-1) mg/dL Ur Leukocyte Esterase NEGATIVE (NEGATIVE) Urine Microscopic RBC 2-5 (0-2) /HPF Urine Microscopic WBC 0-2 (0-5) /HPF Ur Epithelial Cells RARE (FEW) /HPF Urine Bacteria FEW (NEGATIVE) /HPF Urine Glucose NEGATIVE (NEGATIVE) mg/dL Urine Opiates Level NEG. (NEGATIVE) Ur Methadone NEG. (NEGATIVE) Urine Barbiturates NEG. (NEGATIVE) Ur Phencyclidine (PCP) NEG. (NEGATIVE) Urine Amphetamine NEG. (NEGATIVE) U Benzodiazepine Level NEG. (NEGATIVE) Urine Cocaine NEG. (NEGATIVE) Urine Marijuana (THC) NEG. (NEGATIVE) Specimen Received 11/25/16 0345 - Departure Time of Disposition: 04:46 Departure Disposition: Home Clinical Impression: CHEST PAIN, ADVERSE SIDE EFFECTS OF FENTANYL, MILD HYPOMAGNESEMIA Condition: Stable Critical Care Time: No Referrals: KASSI COLEMAN [Primary Care Provider] - Instructions: Adverse Drug Reaction -- Allergic, Chest Pain Additional Instructions: FOLLOW UP WITH PRIVATE DOCTOR TODAY. STOP FENTANYL.
[2016-11-25 03:50] LABS: BASOPHIL % 0.8 % (0.0-0.4); Eosinophil % 5.5 % (0.00-5.0); Granulocytes % 48.8 % (36.0-66.0); Lymphocytes % 31.6 % (24.0-44.0); Mean Cell Volume 91.8 fl (78-100); Mean Corpuscular Hemoglobin 29.8 pg (26-32); Mean Platelet Volume 8.8 fl (6-9.5); Monocytes % 13.3 % (0.0-12.0); Platelet Count 303 K/mm3 (150-450); Red Blood Count 3.79 M/mm3 (4.1-5.6); Red Cell Distribution Width 14.9 % (11.5-14.0)
[2016-11-25 04:09] LABS: INR 1.21 (0.8-3.0); PROTIME 13.7 SECONDS (8.83-12.87)
[2016-11-25 04:10] LABS: Bilirubin NEGATIVE (NEGATIVE); COMPLETE URINE MICROSCOPIC? YES; Collection Type VOID; Glucose NEGATIVE (NEGATIVE); Leukocyte Esterase NEGATIVE (NEGATIVE)
[2016-11-25 04:11] LABS: ADD URINE CULTURE? NO (NO); Bacteria FEW /HPF (NEGATIVE); Blood TRACE NON-HEM Ery/ul (0-5); Epithelial Cells RARE /HPF (FEW); WBC 0-2 /HPF (0-5)
[2016-11-25 04:12] LABS: PTT 31.4 SECONDS (24.1-36.1)
[2016-11-25 04:16] LABS: ALBUMIN 3.2 g/dL (3.4-5.0); ALKALINE PHOSPHATASE 54 U/L (46-116); ANION GAP 13.8 MEQ/L (5-15); BLOOD UREA NITROGEN 11 mg/dL (9-20); CHLORIDE 103 mEq/L (98-107); Carbon Dioxide 26.4 mEq/L (21-32); Glucose 102 MG/DL (70-110); LIPASE 250 U/L (73-393); MAGNESIUM 1.7 mg/dL (1.8-2.4); Potassium 3.8 mEq/L (3.5-5.1); SGOT/AST 14 U/L (15-37); SODIUM 139 mEq/L (136-145)
[2016-11-25 04:25] LABS: SGPT/ALT 18 U/L (12-78)
[2016-11-25] MEDS ORDERED: TORAdol 30 mg Injection IV ONE (04:41)
[2016-11-25] MEDS ORDERED: TORAdol 30 mg Injection ONE (04:49)
[2016-11-25] MEDS ORDERED: MAG-OX 400 ONE (04:49)
[2016-11-25 05:06] VITALS: BP 104/61; PULSE 72; O2SAT 95
[2016-11-25] MEDS ORDERED: BABY ASPIRIN 81 MG CHEW ONE (06:36)
--- NOTE | 2016-11-25 09:31 | XRAY ---
Indication: Chest pain. Comparison: September 03, 2015. Portable chest again demonstrates minimal bibasilar atelectasis/scarring. Remaining lungs clear. Heart is not enlarged. Bony thorax intact again with lower cervical fusion surgery.
[2016-11-25] MEDS ORDERED: MAG-OX 400 PO SCH (10:00)
== END 2016-11-25 05:08 | disposition home or self-care (01) ==
LOC: ED 02:26
DX: R07.89 Other chest pain (principal); T40.4X5A Adverse effect of other synthetic narcotics, initial encounter; E83.42 Hypomagnesemia; R06.02 Shortness of breath; M79.622 Pain in left upper arm; R10.9 Unspecified abdominal pain; R61 Generalized hyperhidrosis; R51 Headache; E11.9 Type 2 diabetes mellitus without complications; I10 Essential (primary) hypertension; I73.9 Peripheral vascular disease, unspecified
CPT/HCPCS: 36000; 36415; 71010; 80053; 80307; 81000; 82150; 83690; 83735; 84484; 85025; 85610; 85730; 93005; 93041; 96374; 99284; 99285; J1885; A9270-GY

== ENCOUNTER 2018-09-23 18:41 | Emergency (ER) | payer MEDICARE ==
[2018-09-23] MEDS ORDERED: Hydromorphone 1 mg/ml Ampule IM ONE (19:46)
[2018-09-23] MEDS ORDERED: Phenergan 25 MG INJ IM ONE (19:46)
[2018-09-23] MEDS ORDERED: Phenergan 25 MG INJ ONE (19:58)
[2018-09-23] MEDS ORDERED: Hydromorphone 1 mg/ml Ampule ONE (19:58)
--- NOTE | 2018-09-23 20:09 | ERPHSYRPT ---
- History of Present Illness Time Seen by Provider: 09/23/18 18:55 Source: patient Exam Limitations: clinical condition Patient Subjective Stated Complaint: sahil had floor zeke fell through and injured shoulder Triage Nursing Assessment: pt alert and oriented x3, able to ambulate by self, gait is steady, sahil has some bleeding to left eye, denies any loss of consciousnesss, states he has no headache or nausea or vomitting, unable to lift should at all, tingling down left arm and pain now shooting into back, radial pulse present, cap refill immediate. Physician History: PATIENT WITH A HISTORY OF DEGENERATIVE DISC DISEASE LUMBAR SPINE, TYPE 2 DIABETES AND HYPERTENSION FELL YESTERDAY THROUGH FLOOR AND INJURED HIS FACE, BRUSING OVER LEFT CHEEK, NECK PAIN AND SEVERE LEFT SHOULDER PAIN. DENIES LOSS OF CONSCIOUSNESS, NUMBNESS, TINGLING OR WEAKNESS IN EXTREMITIES. Occurred: yesterday Reason for Fall: fell from standing pos (THROUGH PARTIAL FLOOR) Injuries/Pain Location: head, face, neck, upper extremity Loss of Consciousness: no loss of consciousness Quality: throbbing (LEFT SHOULDER PAIN) Severity of Pain-Max: moderate Severity of Pain-Current: moderate Associated Symptoms (Fall): extremity injury Allergies/Adverse Reactions: morphine Adverse Reaction (Verified 11/10/16 16:27) Tightness in Chest tramadol Adverse Reaction (Verified 11/10/16 16:27) Home Medications: Lisinopril 10 mg [Zestril 10 MG] 10 mg PO BID 05/26/13 [History] Aspirin EC 325 mg [Ecotrin 325 MG] 325 mg PO DAILY 12/10/15 [History] Gabapentin 600 mg PO TID 10/17/16 [History] Metformin HCl [Glucophage] 1,000 mg PO BID 10/17/16 [History] Oxycodone HCl/Acetaminophen [Oxycodon-Acetaminophen 7.5-325] 2 each PO Q6-8HPRN PRN 11/10/16 [History] Hx Tetanus, Diphtheria Vaccination/Date Given: Yes Hx Influenza Vaccination/Date Given: No Hx Pneumococcal Vaccination/Date Given: No Immunizations Up to Date: Yes - Review of Systems Constitutional: No Fever, No Chills Eyes: No Symptoms Ears, Nose, & Throat: Other (FACIAL PAIN WITH BRUSING) Respiratory: No Symptoms, No Cough, No Dyspnea Cardiac: Orthopnea, No Chest Pain, No Edema, No Syncope Abdominal/Gastrointestinal: No Abdominal Pain, No Nausea, No Vomiting, No Diarrhea Genitourinary Symptoms: No Dysuria Musculoskeletal: Neck Pain, Injury, Joint Pain, Joint Swelling, No Back Pain Skin: No Rash Neurological: No Dizziness, No Focal Weakness, No Sensory Changes Psychological: No Symptoms Endocrine: No Symptoms All Other Systems: Reviewed and Negative - Past Medical History Pertinent Past Medical History: Yes Neurological History: No Pertinent History ENT History: No Pertinent History Cardiac History: Angina, Hypertension, Peripheral Vascular Disease Respiratory History: No Pertinent History Endocrine Medical History: Diabetes Type II Musculoskeletal History: Degenerative Disk Disease, Osteoarthritis, Other GI Medical History: No Pertinent History History: Other Psycho-Social History: No Pertinent History Male Reproductive Disorders: No Pertinent History Other Medical History: kidney stones, pinched nerve,CHRONIC BACK PAIN - Past Surgical History Past Surgical History: Yes Neuro Surgical History: No Pertinent History Cardiac: Cardiac Catheterization, Vascular Surgery Respiratory: No Pertinent History Gastrointestinal: No Pertinent History Genitourinary: No Pertinent History, Other Musculoskeletal: Orthopedic Surgery Male Surgical History: No Pertinent History Other Surgical History: KIDNEY STONE. leg bypass with stent in leg. dental surgery. BACK FUSION SURGERY. neck fusion - Social History Smoking Status: Current every day smoker How long have you smoked: 42 yrs Exposure to second hand smoke: No Alcohol Use: None Drug Use: none Patient Lives Alone: No Significant Family History: hypertension - Nursing Vital Signs Nursing Vital Signs: Initial Vital Signs Temperature 98 F 09/23/18 18:41 Pulse Rate 70 09/23/18 18:41 Respiratory Rate 20 09/23/18 18:41 Blood Pressure 173/87 09/23/18 18:41 O2 Sat by Pulse Oximetry 98 09/23/18 18:41 Pain Scale Pain Intensity 10 - Audrey Coma Score Best Eye Response (Solomon): (4) open spontaneously Best Verbal Response (Audrey): (5) oriented Best Motor Response (Audrey): (6) obeys commands Audrey Total: 15 - Physical Exam General Appearance: no apparent distress, alert Head Injury: no evidence of injury Eye Exam: PERRL/EOMI, other (LEFT INFRAORBITAL ECCHYMOSIS, MINIMAL SWELLING, NO PERIORBITAL CREPITUS, FULL RANGE OF MOTION TMJ JOINT, ) ENT Exam: airway nml Neck Exam: normal inspection, tenderness (THERE IS MINIMAL POST CERVICAL SPINAL TENDERNESS) Respiratory/Chest Exam: normal breath sounds, No chest tenderness, No respiratory distress Cardiovascular Exam: normal heart sounds, regular rate/rhythm Gastrointestinal Exam: soft, No tenderness, No distention, No guarding, No ecchymosis Back Exam: normal inspection, No vertebral tenderness Extremity Exam: pelvis stable, swelling, tenderness (LEFT SHOULDER, NO ECCHYMOSIS, NO CREPITUS. MARKED LIMITED RANGE OF MOTION, LEFT RADIAL PULSE 2+), No deformities Peripheral Pulses: carotid (R): 2+, carotid (L): 2+, femoral (R): 2+, femoral (L ): 2+, dorsalis-pedis (R): 2+, dorsalis-pedis (L): 2+ Neurologic Exam: alert, oriented x 3, cooperative, sensation nml, No motor deficits Skin Exam: normal color, warm, dry SpO2 Interpretation: normal SpO2: 97 - Radiology Exams Left Shoulder X-ray Interpretation: Interpreted by me, Negative, No Fracture (NO DISLOCATION) - CT Exams Head CT Interpretation: Discussed w/radiologist (BILATERAL ETHMOID AND RIGHT MAXILLARY SINUS DISEASE) Maxillofacial Bones CT Interpretation: Discussed w/radiologist (NEGATIVE FOR FRACTURE) Cervical Spine CT Interpretation: Discussed w/radiologist, No Fracture (INTERVAL C5-C7 FUSION WITH HARDWARE INTACT, NEGATIVE FOR FRACTURE) Ordered Tests: Active Orders 24 hr Category Date Time Status Sling Application STAT Care 09/23/18 20:59 Active CERVICAL SPINE WO CONTRAST [CT] Stat Exams 09/23/18 19:57 Taken FACIAL BONES WO CONTRAST [CT] Stat Exams 09/23/18 19:44 Taken HEAD WITHOUT CONTRAST [CT] Stat Exams 09/23/18 19:44 Taken SHOULDER Stat Exams 09/23/18 19:45 Taken Medication Summary Discontinued Medications Generic Name Dose Route Start Last Admin Trade Name Freq PRN Reason Stop Dose Admin Hydromorphone HCl 1 mg 09/23/18 19:46 09/23/18 20:03 Hydromorphone 1 Mg/Ml Ampule IM 09/23/18 19:47 1 mg STAT ONE Administration Hydromorphone HCl Confirm 09/23/18 19:58 Hydromorphone 1 Mg/Ml Ampule Administered 09/23/18 19:59 Dose 1 mg .ROUTE .STK-MED ONE Promethazine HCl 25 mg 09/23/18 19:46 09/23/18 20:03 Phenergan 25 Mg Inj IM 09/23/18 19:47 25 mg STAT ONE Administration Promethazine HCl Confirm 09/23/18 19:58 Phenergan 25 Mg Inj Administered 09/23/18 19:59 Dose 25 mg .ROUTE .STK-MED ONE - Progress Progress Note: 09/23/18 20:12 DILAUDID 1MG/PHENERGAN 25MG IM, APPLICATION LEFT ARM SLING 09/23/18 21:00 Counseled pt/family regarding: diagnosis, need for follow-up, rad results - Departure Departure Disposition: Home Clinical Impression: LEFT SHOULDER ROTATOR CUFF TEAR Condition: Stable Critical Care Time: No Referrals: KASSI COLEMAN [Primary Care Provider] - Additional Instructions: WEAR LEFT ARM SLING FOR COMFORT. APPLY ICE OVER LEFT SHOULDER EVERY 4 HOURS, 30 MINUTES FOR 48 HOURS. NORCO 10/325 EVERY 6 HOURS FOR PAIN NEEDED. FOLLOWUP WITH YOUR PRIMARY CARE PROVIDER AND [facility] AT 8AM WEDNESDAY THROUGH WEDNESDAY, [address], . Prescriptions: Hydrocodone/APAP 10/325 mg [Brewster 10/325 MG Tablet] 1 tab PO Q6H PRN PRN # 16 tablet MDD 4 PRN Reason: Pain
[2018-09-23 20:46] VITALS: PULSE 67
[2018-09-23 21:06] VITALS: O2SAT 97
[2018-09-23] MEDS ORDERED: Norco 10/325 MG Tablet PO ONE (21:32)
[2018-09-23] MEDS ORDERED: Norco 10/325 MG Tablet ONE (21:35)
[2018-09-23 21:53] VITALS: BP 164/82
--- NOTE | 2018-09-24 08:14 | XRAY ---
Indication: Left periorbital abrasion following fall. Multiple contiguous axial images obtained through the facial bones. Sagittal and coronal reformatted images obtained. Comparison: September 26, 2013. Patient again edentulous. No acute fracture, suspicious bone lesions, or radiopaque foreign body. Orbits including roof, de la torre, and floors intact. Again moderate mucosal thickening of both ethmoid, both maxillary, and right sphenoid sinuses. Stable mild bilateral carotid and vertebral artery calcifications. Remaining visualized noncontrasted soft tissues unremarkable. CT head and CT cervical spine reported separately. Impression: 1. Negative acute fracture. 2. Again paranasal sinus disease. CTDI 59.47
--- NOTE | 2018-09-24 08:23 | XRAY ---
Indication: Neck pain following fall. Multiple contiguous axial images obtained through the cervical spine. Sagittal and coronal reformatted images obtained. Comparison: September 26, 2013. Axial images again negative for acute fracture, suspicious bony lesions, or spinal canal stenosis. Interval C5-C7 fusion surgery with intact hardware. Minimal C5-C7 endplate spurring. Sagittal and coronal reformatted images demonstrates normal alignment. No acute compression fracture, subluxation, or jumped facet. Normal appearing craniocervical junction. Visualized noncontrasted soft tissues demonstrates mild vascular calcifications. CT head reported separately. Impression: C5-C7 fusion and degenerative spurring. Remaining CT cervical spine is negative. CTDI 63.11
--- NOTE | 2018-09-24 08:26 | XRAY ---
Indication: Pain following fall. Multiple contiguous axial images obtained through the head without contrast. Comparison: September 03, 2015. Again normal appearing brain parenchyma, ventricles, and bony calvarium. There remains mucosal thickening of both ethmoid, right sphenoid, and right maxillary sinuses. Mastoid air cells are clear. Impression: No new/acute intracranial abnormalities. Again incidental paranasal sinus disease. CTDI 50.26
--- NOTE | 2018-09-24 08:35 | XRAY ---
Indication: Pain following fall. Comparison: None 3 views of the left shoulder demonstrates tiny heterotopic ossifications superior to the glenohumeral joint either degenerative versus old injury. Previous cervical fusion surgery. No other bony, articular, or soft tissue abnormalities.
== END 2018-09-23 21:53 | disposition home or self-care (01) ==
LOC: ED 18:41
DX: M75.102 Unspecified rotator cuff tear or rupture of left shoulder, not specified as traumatic (principal); M89.012 Algoneurodystrophy, left shoulder; I10 Essential (primary) hypertension; I73.9 Peripheral vascular disease, unspecified; Z79.899 Other long term (current) drug therapy
CPT/HCPCS: 70450; 70486; 72125; 73030; 96372; 99284; J1170; J2550; A9270-GY

== ENCOUNTER 2019-03-12 14:13 | Emergency (ER) | payer MEDICARE, OTHER ==
[2019-03-12] MEDS ORDERED: PROVENTIL 2.5 MG/3 ML NEB IH ONE ×2 (14:42→14:55)
[2019-03-12] MEDS ORDERED: DELTASONE 20 MG PO ONE (14:42)
[2019-03-12] MEDS ORDERED: DUONEB 0.5-3 MG/3 ml Neb IH ONE ×2 (14:42→14:55)
[2019-03-12] MEDS ORDERED: Vibramycin 100 MG PO ONE (14:43)
--- NOTE | 2019-03-12 14:44 | ERPHSYRPT ---
- History of Present Illness Time Seen by Provider: 03/12/19 14:30 Source: patient Exam Limitations: no limitations Patient Subjective Stated Complaint: Pt states that he has pain in the RUQ, pain with palpatation, states that he has blood in his stool a couple of times a month with last time being Wednesday, he has been really tired, coughing up green sputum, rates pain 5/10 Triage Nursing Assessment: Pt walked into the ER, hypertensive, all other vitals wnl, lungs wheezy throughout, bowel sounds heard in all 4, pain to RUQ, rates pain 5/10 Physician History: The patient is a 58-year-old male with a past medical history significant for cigarette smoking, diabetes mellitus, hypertension presents with a chief complaint of shortness of breath and cough. He reportedly started to have a productive cough over the past month that became worse over the past week. He denies hemoptysis, fever, chills, and complained of RUQ abdominal pain that has been intermittent over the past week and complained of intermittent rectal bleeding in which he has been experiencing over the past 6 months as well as a "mass" noted to his periumbilical region that has been present for months to possibly years. The patient is a daily smoker and has been smoking for years, but has cut back over the past week because of his cough and dyspnea. He denies chest pain, nausea, vomiting, weight loss, dizziness and syncope. He denies formal diagnosis of lung disease to include emphysema or COPD. He had not had a colonoscopy to date. Modifying Factors: Improves With: coughing, exertion Associated Symptoms: cough, wheezing, No hemoptysis International travel in last 2 weeks: No Allergies/Adverse Reactions: bee venom protein (honey bee) Allergy (Verified 03/12/19 14:37) morphine Adverse Reaction (Verified 03/12/19 14:33) Tightness in Chest tramadol Adverse Reaction (Verified 03/12/19 14:33) Home Medications: Aspirin EC 325 mg [Ecotrin 325 MG] 325 mg PO DAILY 12/10/15 [History] Metformin HCl [Glucophage] 1,000 mg PO BID 10/17/16 [History] Hx Tetanus, Diphtheria Vaccination/Date Given: Yes Hx Influenza Vaccination/Date Given: No Hx Pneumococcal Vaccination/Date Given: No - Review of Systems Constitutional: Fever, Chills Ears, Nose, & Throat: Nose Congestion Respiratory: Cough, Wheezing Abdominal/Gastrointestinal: Abdominal Pain, Diarrhea, Other (Intermitten rectal bleeding, RUQ and LUQ abdominal pain), No Nausea, No Vomiting, No Melena Musculoskeletal: No Back Pain Neurological: No Symptoms Psychological: No Symptoms All Other Systems: Reviewed and Negative - Past Medical History Pertinent Past Medical History: Yes Neurological History: No Pertinent History ENT History: No Pertinent History Cardiac History: Angina, Hypertension, Peripheral Vascular Disease Respiratory History: No Pertinent History Endocrine Medical History: Diabetes Type II Musculoskeletal History: Degenerative Disk Disease, Osteoarthritis, Other GI Medical History: No Pertinent History History: Other Psycho-Social History: No Pertinent History Male Reproductive Disorders: No Pertinent History Other Medical History: kidney stones, pinched nerve,CHRONIC BACK PAIN - Past Surgical History Past Surgical History: Yes Neuro Surgical History: No Pertinent History Cardiac: Cardiac Catheterization, Vascular Surgery Respiratory: No Pertinent History Gastrointestinal: No Pertinent History Genitourinary: No Pertinent History, Other Musculoskeletal: Orthopedic Surgery Male Surgical History: No Pertinent History Other Surgical History: KIDNEY STONE. leg bypass with stent in leg. dental surgery. BACK FUSION SURGERY. neck fusion - Social History Smoking Status: Current every day smoker How long have you smoked: 42 yrs Exposure to second hand smoke: Yes Alcohol Use: None Drug Use: none Patient Lives Alone: No Significant Family History: hypertension - Nursing Vital Signs Nursing Vital Signs: Initial Vital Signs Temperature 97.9 F 03/12/19 14:18 Pulse Rate 77 03/12/19 14:18 Blood Pressure 156/89 03/12/19 14:18 O2 Sat by Pulse Oximetry 96 03/12/19 14:18 Pain Scale Pain Intensity 2 - Physical Exam General Appearance: no apparent distress Eye Exam: PERRL/EOMI, No photophobia Ears, Nose, Throat Exam: normal pharynx, No abnormal TM (R), No abnormal TM (L) , No nasal congestion, No pharyngeal erythema, No tonsillar exudate, No tonsillar swelling Neck Exam: normal inspection, No JVD Respiratory Exam: diminished breath sounds, crackles/rales, wheezing, other ( Fine inspiratory crackles auscultated in the L base), No respiratory distress, No accessory muscle use, No rhonchi Cardiovascular/Chest Exam: normal heart sounds, regular rate/rhythm, normal peripheral pulses, No murmur, No edema, No JVD, No gallop, No pulse deficit Abdominal/Gastrointestinal Exam: soft, tenderness, hernia (Umbilical hernia present with no significant tenderness), other (Mild tenderness to RUQ and LUQ with no rebound tenderness, guarding, or rigidity), No distention, No mass, No ecchymosis, No pulsatile mass Rectal Exam: hemorrhoids, other (External hemorrhoids present with no evidence of thrombosis), No black stool, No blood Extremity Exam: non-tender, No calf tenderness, No swelling (No asymmetric swelling or evidence of suggest DVT) Neurologic Exam: alert, oriented x 3, cooperative Skin Exam: normal color, warm, dry, No rash SpO2 Interpretation: normal SpO2: 96 O2 Delivery: Room Air - Course Nursing assessment & vital signs reviewed: Yes EKG Interpreted by Me: RATE, Sinus Rhythm, Left [place] Deviation, NORMAL QRS, NORMAL ST-T - Radiology Exams Chest X-ray Interpretation: Interpreted by me, Reviewed by me (Left lower lobe pneumonia), Infiltrates, Other (Pnemonia of the left lung) Ordered Tests: Medication Summary Discontinued Medications Generic Name Dose Route Start Last Admin Trade Name Freq PRN Reason Stop Dose Admin Albuterol Sulfate 2.5 mg 03/12/19 14:42 03/12/19 15:08 Proventil 2.5 Mg/3 Ml Neb IH 03/12/19 14:43 2.5 mg STAT ONE Administration Albuterol Sulfate Confirm 03/12/19 14:55 Proventil 2.5 Mg/3 Ml Neb Administered 03/12/19 14:56 Dose 2.5 mg IH .STK-MED ONE Albuterol/Ipratropium 3 ml 03/12/19 14:42 03/12/19 14:59 Duoneb 0.5-3 Mg/3 Ml Neb IH 03/12/19 14:43 3 ml STAT ONE Administration Albuterol/Ipratropium Confirm 03/12/19 14:55 Duoneb 0.5-3 Mg/3 Ml Neb Administered 03/12/19 14:56 Dose 3 ml IH .STK-MED ONE Doxycycline Hyclate 100 mg 03/12/19 14:43 03/12/19 14:54 Vibramycin 100 Mg PO 03/12/19 14:44 100 mg STAT ONE Administration Doxycycline Hyclate Confirm 03/12/19 14:48 Vibramycin 100 Mg Administered 03/12/19 14:49 Dose 100 mg .ROUTE .STK-MED ONE Prednisone 40 mg 03/12/19 14:42 03/12/19 14:54 Deltasone 20 Mg PO 03/12/19 14:43 40 mg STAT ONE Administration Prednisone Confirm 03/12/19 14:48 Deltasone 20 Mg Administered 03/12/19 14:49 Dose 40 mg .ROUTE .STK-MED ONE Lab/Rad Data: Laboratory Result Diagrams 03/12/19 14:35 03/12/19 14:35 Laboratory Results 03/12/19 03/12/19 03/12/19 Range/Units 14:50 14:35 14:35 WBC (4.0-10.5) K/mm3 RBC (4.1-5.6) M/mm3 Hgb (12.5-18.0) gm/dl Hct (42-50) % MCV (78-100) fl MCH (26-32) pg MCHC (32-36) g/dl RDW (11.5-14.0) % Plt Count (150-450) K/mm3 MPV (6-9.5) fl Gran % (36.0-66.0) % Eos # (Auto) (0-0.5) Absolute Lymphs (auto) (1.0-4.6) Absolute Monos (auto) (0.0-1.3) Lymphocytes % (24.0-44.0) % Monocytes % (0.0-12.0) % Eosinophils % (0.00-5.0) % Basophils % (0.0-0.4) % Absolute Granulocytes (1.4-6.9) Basophils # (0-0.4) Sodium Direct 140 (138-146) mmol/L Potassium 3.7 (3.5-4.9) mmol/L Chloride 102 (98-109) mmol/L Carbon Dioxide 23 L (24-29) mmol/L Venous BUN 16 (8-26) mg/dL Creatinine 1.1 (0.6-1.3) mg/dL Glucose 102 (70-105) mg/dL Ionized Calcium 1.23 (1.12-1.32) mmol/L Troponin I < 0.012 (0.000-0.034) ng/mL Stool Occult Blood NEGATIVE (Negative) 03/12/19 Range/Units 14:35 WBC 12.8 H (4.0-10.5) K/mm3 RBC 4.85 (4.1-5.6) M/mm3 Hgb 14.7 (12.5-18.0) gm/dl Hct 43.4 (42-50) % MCV 89.5 (78-100) fl MCH 30.3 (26-32) pg MCHC 33.9 (32-36) g/dl RDW 14.2 H (11.5-14.0) % Plt Count 255 (150-450) K/mm3 MPV 10.5 H (6-9.5) fl Gran % 58.1 (36.0-66.0) % Eos # (Auto) 0.41 (0-0.5) Absolute Lymphs (auto) 3.72 (1.0-4.6) Absolute Monos (auto) 1.17 (0.0-1.3) Lymphocytes % 29.1 (24.0-44.0) % Monocytes % 9.1 (0.0-12.0) % Eosinophils % 3.2 (0.00-5.0) % Basophils % 0.5 (0.0-0.4) % Absolute Granulocytes 7.44 H (1.4-6.9) Basophils # 0.06 (0-0.4) Sodium Direct (138-146) mmol/L Potassium (3.5-4.9) mmol/L Chloride (98-109) mmol/L Carbon Dioxide (24-29) mmol/L Venous BUN (8-26) mg/dL Creatinine (0.6-1.3) mg/dL Glucose (70-105) mg/dL Ionized Calcium (1.12-1.32) mmol/L Troponin I (0.000-0.034) ng/mL Stool Occult Blood (Negative) - Progress Progress: improved, re-examined Air Movement: good Blood Culture(s) Obtained: No Antibiotics given: Yes Counseled pt/family regarding: lab results, diagnosis, need for follow-up, rad results, smoking cessation - Departure Departure Disposition: Home Clinical Impression: Community acquired bacterial pneumonia, Tobacco abuse, Rectal bleeding Condition: Stable Critical Care Time: No Referrals: KASSI COLEMAN [Primary Care Provider] - Instructions: Quitting Smoking for Older Adults, Pneumonia, Adult (DC), Bloody Stools, Adult (DC) Additional Instructions: Please follow-up with your primary care provider this week if able Plan of Treatment: Nontoxic in appearance. Labs, EKG, and CXR reviewed. EKG with no evidence of myocardial ischemia or injury. CXR with evidence of PNA which would likely explain his upper quadrant abdominal pain given this is likely referred pain. His wheezing cleared after treatment with nebs in the ED and he was able to ambulate in the ED without hypoxia or increased work of breathing. I suspect the patient may have undiagnosed obstructive lung disease, specifically emphysema or COPD given his smoking hx. CURB-65 score was a 0. He was discharged with abx consisting of doxycline, prednisone burst, and an albuterol MDI. 3-5 minutes of smoking cessation counseling was given. Rectal bleeding may be from external hemorrhoids, but the patient reports he has not had a colonscopy to date. He was instructed to return to the ED if his symptoms became worse and instructed to f/u with his primary care provider within a week to be re-evaluated Prescriptions: Albuterol 8 gm Mdi Hfa [Ventolin Hfa MDI] 8 gm IH Q4H #1 hfa.aer.ad Doxycycline Hyclate 100 mg [Vibramycin 100 MG] 100 mg PO BID #14 tab Prednisone 10 mg [Deltasone 10 mg] 40 mg PO TID #16 tablet
[2019-03-12] MEDS ORDERED: DELTASONE 20 MG ONE (14:48)
[2019-03-12] MEDS ORDERED: Vibramycin 100 MG ONE (14:48)
[2019-03-12 15:03] LABS: Absolute Neutrophil Ct (ANC) 7.44 (1.4-6.9); BASOPHIL % 0.5 % (0.0-0.4); Basophil (Absolute #) 0.06 (0-0.4); Eosinophil % 3.2 % (0.00-5.0); Eosinophil (Absolute #) 0.41 (0-0.5); Hematocrit 43.4 % (42-50); Hemoglobin 14.7 gm/dl (12.5-18.0); Lymphocyte (Absolute #) 3.72 (1.0-4.6); Lymphocytes % 29.1 % (24.0-44.0); Mean Cell Volume 89.5 fl (78-100); Mean Corpuscular Hemoglobin 30.3 pg (26-32); Mean Corpuscular Hgb Concent. 33.9 g/dl (32-36); Mean Platelet Volume 10.5 fl (6-9.5); Monocyte (Absolute #) 1.17 (0.0-1.3); Monocytes % 9.1 % (0.0-12.0); Neutrophil % 58.1 % (36.0-66.0); Platelet Count 255 K/mm3 (150-450); Red Blood Count 4.85 M/mm3 (4.1-5.6); Red Cell Distribution Width 14.2 % (11.5-14.0); White Blood Count 12.8 K/mm3 (4.0-10.5)
[2019-03-12 15:16] LABS: ISTAT CREA 1.1 mg/dL (0.6-1.3)
--- NOTE | 2019-03-12 15:36 | XRAY ---
Indication: Cough and congestion one month. Comparison: November 25, 2016. PA/lateral chest demonstrates new subtle lingula infiltrate versus atelectasis. Remaining heart and right lung normal. Bony thorax intact again with lower cervical fusion surgery.
[2019-03-12 16:01] VITALS: BP 123/80
[2019-03-12 16:53] VITALS: PULSE 68
[2019-03-12 18:51] VITALS: O2SAT 96
== END 2019-03-12 16:53 | disposition home or self-care (01) ==
LOC: ED 14:13
DX: J15.9 Unspecified bacterial pneumonia (principal); Z72.0 Tobacco use; K62.5 Hemorrhage of anus and rectum
CPT/HCPCS: 36000; 36415; 71046; 80047; 82272; 84484; 85025; 93005; 94150; 94640; 99284; J7609; A9270-GY

== ENCOUNTER 2019-03-20 14:27 | Observation (INO) | payer OTHER ==
[2019-03-20] MEDS ORDERED: Sodium Chloride 0.9% 10 ML FLUSH Syringe IV PRN (16:30)
[2019-03-20] MEDS: Singulair 10 MG PO SCH (16:47)
[2019-03-20] MEDS: Mucinex 600MG ER Tabs PO SCH (16:47)
[2019-03-20] MEDS: solu-MEDROL 125 MG IV SCH ×2 (16:48→22:52)
[2019-03-20] MEDS ORDERED: Zithromax 250 MG TABLET PO SCH (17:00)
--- NOTE | 2019-03-20 17:20 | XRAY ---
Indication: Cough. COPD exacerbation. Comparison: March 12, 2019. PA/lateral chest unchanged again demonstrating subtle left base infiltrate/atelectasis. Remaining heart and right lung normal.
[2019-03-20] MEDS: DUONEB 0.5-3 MG/3 ml Neb IH SCH (17:23)
[2019-03-20] MEDS: Tessalon Perles 100 MG PO SCH (22:50)
[2019-03-20] MEDS: Sodium Chloride 0.9% 10 ML FLUSH Syringe IV SCH (22:52)
[2019-03-21] MEDS: Sodium Chloride 0.9% 10 ML FLUSH Syringe IV SCH (05:17)
[2019-03-21] MEDS: solu-MEDROL 125 MG IV SCH (05:17)
[2019-03-21] MEDS: Mucinex 600MG ER Tabs PO SCH (05:17)
[2019-03-21] MEDS: DUONEB 0.5-3 MG/3 ml Neb IH SCH (05:46)
--- NOTE | 2019-03-21 09:13 | PCM.SSS ---
History of Present Illness - Chief Complaint Chief Complaint: COPD EXAC History of Present Illness: is a 58 year old male pt from [facility] with DM (diet controlled), HTN, CAD , and PVD, smoker, who was admitted from office with COPD exacerbation/ pneumonia yesterday. He has been sick for a few weeks but yesterday morning was more short of breath so came to see Dr. Maxwell. He was being treated with doxycycline po. Since admission he is feeling much better. He has been up walking around several times this morning. Not on O2. We discussed that he would benefit from another day in the hospital with IV steroids, but he really wants to go home since he is the only one in his house and he heats with wood (is afraid his house will get too cold and his pipes will freeze). He is to return [facility] for any worsening in sx. Will be sent home on po steroids, po zithromax, singulair , albuterol, and spiriva. - Review of Systems Respiratory: Cough, Short Of Breath Neurological: Dizziness (yesterday) All Other Systems: Reviewed and Negative Medications & Allergies Home Medications: Home Medication List Aspirin EC 325 mg [Ecotrin 325 MG] 325 mg PO DAILY 12/10/15 [History Confirmed 03/20/19] Albuterol 8 gm Mdi Hfa [Ventolin Hfa MDI] 8 gm IH Q4H #1 hfa.aer.ad [Rx Confirmed 03/20/19] Azithromycin 250 mg [Zithromax 250 MG TABLET] 250 mg PO DAILY #4 tablet [Rx] Benzonatate [Tessalon Perle] 100 mg PO TID PRN #15 capsule 03/21/19 [Rx] Guaifenesin 600 mg ER [Mucinex 600MG ER Tabs] 1,200 mg PO Q12H #10 tablet 03/21/19 [Rx] Montelukast Sodium 10 mg [Singulair 10 MG] 10 mg PO DAILY #30 tablet [Rx] Prednisone 20 mg [Deltasone 20 mg] 20 mg PO DAILY #17 tablet 03/21/19 [Rx] Tiotropium [place] Inhaler [Spiriva 18 Mcg/Cap Inhaler] 2 puff IH DAILY 30 Days #1 inh 03/21/19 [Rx] Allergies/Adverse Reactions: Allergies Allergy/AdvReac Type Severity Reaction Status Date / Time bee venom protein (honey bee) Allergy Verified 03/20/19 16:16 morphine AdvReac Tightness Verified 03/20/19 16:16 in Chest tramadol AdvReac Verified 03/20/19 16:16 - Past Medical History Past Medical History: Yes Neurological History: No Pertinent History ENT History: No Pertinent History Cardiac History: Angina, Hypertension, Peripheral Vascular Disease Respiratory History: No Pertinent History Endocrine Medical History: Diabetes Type II Musculoskelatal History: Degenerative Disk Disease, Osteoarthritis, Other GI Medical History: No Pertinent History History: Other Pyscho-Social History: No Pertinent History Male Reproductive Disorders: No Pertinent History Comment: kidney stones, pinched nerve,CHRONIC BACK PAIN - Past Surgical History Past Surgical History: Yes Neuro Surgical History: No Pertinent History Cardiac History: Cardiac Catheterization, Vascular Surgery Respiratory Surgery: No Pertinent History GI Surgical History: No Pertinent History Genitourinary Surgical Hx: No Pertinent History, Other Musculskeletal Surgical Hx: Orthopedic Surgery Male Surgical History: No Pertinent History Other Surgical History: KIDNEY STONE. leg bypass with stent in leg and artificial vein. dental surgery. BACK FUSION SURGERY. neck fusion - Social History Smoking Status: Current every day smoker How long have you smoked: 45 years Exposure to second hand smoke: Yes Alcohol: None Drug Use: none Significant Family History: hypertension - Physical Exam Vital Signs: Vital Signs - 24 hr Temp Pulse Resp BP Pulse Ox 03/21/19 05:49 69 18 96 03/21/19 04:00 98 F 68 18 133/77 92 L 03/21/19 00:00 97.6 F 62 16 126/72 93 L 03/20/19 20:21 97.8 F 78 18 129/67 93 L 03/20/19 17:28 80 20 94 L 03/20/19 16:30 97.7 F 88 18 145/83 94 L 03/20/19 16:21 97.8 F 88 18 145/83 94 L General Appearance: no apparent distress, alert Neurologic Exam: oriented x 3, cooperative Eye Exam: eyes nml inspection Ears, Nose, Throat Exam: moist mucous membranes Neck Exam: normal inspection Respiratory Exam: lungs clear, diminished breath sounds, No crackles/rales, No rhonchi, No wheezing Cardiovascular Exam: regular rate/rhythm, normal heart sounds, No murmur Gastrointestinal/Abdomen Exam: normal bowel sounds, No distention Back Exam: normal inspection, No rash Extremity Exam: No pedal edema, No swelling Skin Exam: normal color, warm, dry, No rash Results - Radiology Impressions Radiology Exams & Impressions: Radiology Procedures Category Date Time Status CHEST 2 VIEWS (PA AND LAT) Routine Exams 03/20/19 16:30 Completed - Other Procedures and Tests Respiratory Therapy 03/20/19 16:21 Flutter Therapy UD Incentive Spirometry UD 03/20/19 17:27 Peak Expiratory Flow Rate ONCE Respiratory Therapy Assessment DAILY Assessment/Plan (1) COPD exacerbation Current Visit: Yes Status: Acute Assessment & Plan: home on zithromax and po steroids, albuterol and spiriva Code(s): J44.1 - CHRONIC OBSTRUCTIVE PULMONARY DISEASE W (ACUTE) EXACERBATION (2) History of peripheral arterial disease Current Visit: No Status: Chronic Code(s): Z86.79 - PERSONAL HISTORY OF OTHER DISEASES OF THE CIRCULATORY SYSTEM (3) Smoker Current Visit: No Status: Chronic Code(s): F17.200 - NICOTINE DEPENDENCE, UNSPECIFIED, UNCOMPLICATED (4) Type 2 diabetes mellitus Current Visit: No Status: Chronic Qualifiers: Diabetes mellitus exterminator helper termite insulin use: without exterminator helper termite use Diabetes mellitus complication status: without complication Qualified Code(s): E11.9 - Type 2 diabetes mellitus without complications Hospital Summary - Hospital Course Hospital Course: is a 58 year old male pt from [facility] with DM (diet controlled), HTN, CAD , and PVD, smoker, who was admitted from office with COPD exacerbation/ pneumonia yesterday. He has been sick for a few weeks but yesterday morning was more short of breath so came to see Dr. Maxwell. He was being treated with doxycycline po. Since admission he is feeling much better. He has been up walking around several times this morning. Not on O2. We discussed that he would benefit from another day in the hospital with IV steroids, but he really wants to go home since he is the only one in his house and he heats with wood (is afraid his house will get too cold and his pipes will freeze). He is to return [facility] for any worsening in sx. Will be sent home on po steroids, po zithromax, singulair , albuterol, and spiriva. - Vitals & Intake/Output Vital Signs: Vital Signs Temperature 98 F 03/21/19 04:00 Pulse Rate 69 03/21/19 05:49 Respiratory Rate 18 03/21/19 05:49 Blood Pressure 133/77 03/21/19 04:00 O2 Sat by Pulse Oximetry 96 03/21/19 05:49 Intake & Output: Intake & Output 03/18/19 03/19/19 03/20/19 03/21/19 11:59 11:59 11:59 11:59 Intake Total 840 Balance 840 Weight 75.8 kg - Radiology Exams Ordered Rad Exams-Entire Visit: Radiology Procedures Category Date Time Status CHEST 2 VIEWS (PA AND LAT) Routine Exams 03/20/19 16:30 Completed - Procedures and Test Procedures and Tests throughout Hospitalization: Therapy Orders & Screens 03/20/19 16:21 Flutter Therapy UD Comment: MACIE DAO Diagnosis: COPD EXAC Incentive Spirometry UD Comment: MACIE DAO Diagnosis: COPD EXAC Respiratory Nebulizer UD Comment: MACIE DAO Diagnosis: COPD EXAC 03/20/19 17:27 Peak Expiratory Flow Rate ONCE Comment: Reason For Exam: Diagnosis: COPD EXAC Respiratory Therapy Assessment DAILY Comment: Diagnosis: COPD EXAC 03/20/19 17:38 Smoking Cessation Education ONCE Comment: Diagnosis: COPD EXAC Smoking Status: Current every day smoker How long have you smoked: 45 years Have you smoked in the past 12 months: Yes Approximately how many cigarettes per day: 1 PPD Do you dip or chew tobacco: No If,Former Smoker,when did you quit: 11/09 - Discharge Disposition: Home, Self-Care Condition: Stable Prescriptions: New Prednisone 20 mg [Deltasone 20 mg] 20 mg PO DAILY #17 tablet Guaifenesin 600 mg ER [Mucinex 600MG ER Tabs] 1,200 mg PO Q12H #10 tablet Montelukast Sodium 10 mg [Singulair 10 MG] 10 mg PO DAILY #30 tablet Tiotropium [place] Inhaler [Spiriva 18 Mcg/Cap Inhaler] 2 puff IH DAILY 30 Days #1 inh Benzonatate [Tessalon Perle] 100 mg PO TID PRN #15 capsule PRN Reason: Cough Azithromycin 250 mg [Zithromax 250 MG TABLET] 250 mg PO DAILY #4 tablet Continue Aspirin EC 325 mg [Ecotrin 325 MG] 325 mg PO DAILY Albuterol 8 gm Mdi Hfa [Ventolin Hfa MDI] 8 gm IH Q4H #1 hfa.aer.ad Discontinued Metformin HCl [Glucophage] 1,000 mg PO BID Follow up with: KASSI COLEMAN [Primary Care Provider] - 1 Week
[2019-03-21] MEDS: Tessalon Perles 100 MG PO SCH (09:39)
[2019-03-21] MEDS: Singulair 10 MG PO SCH (09:39)
[2019-03-21] MEDS ORDERED: PROVENTIL COMMON CANISTER IH PRN (09:49)
[2019-03-21] MEDS ORDERED: FLUZONE QUAD 2019-2020 SYRINGE IM ONE (10:00)
[2019-03-21] MEDS ORDERED: Ventolin Hfa MDI IH SCH (10:00)
[2019-03-21] MEDS ORDERED: Zithromax 250 MG TABLET PO SCH (10:00)
[2019-03-21] MEDS ORDERED: Ecotrin 325 MG PO SCH (10:00)
[2019-03-21 11:38] VITALS: BP 163/80; PULSE 87; O2SAT 92
== END 2019-03-21 11:36 | disposition home or self-care (01) ==
LOC: MED SURG 16:02
PROVIDERS: ADMIT Family Medicine; ATTEND Family Medicine
DX: J44.1 Chronic obstructive pulmonary disease with (acute) exacerbation (principal); Z86.79 Personal history of other diseases of the circulatory system; F17.200 Nicotine dependence, unspecified, uncomplicated; E11.9 Type 2 diabetes mellitus without complications; I10 Essential (primary) hypertension; I25.10 Atherosclerotic heart disease of native coronary artery without angina pectoris; I73.9 Peripheral vascular disease, unspecified
CPT/HCPCS: 71046; 94150; 94640; 94667; 94760; G0378; 90686; J2930; A9270-GY

== ENCOUNTER 2019-04-06 11:11 | Emergency (ER) | payer OTHER ==
[2019-04-06] MEDS ORDERED: TYLENOL EXTRA STRENGTH 500 MG PO STA (11:32)
[2019-04-06] MEDS ORDERED: MOTRIN 600 MG PO ONE (11:32)
[2019-04-06] MEDS ORDERED: MOTRIN 600 MG ONE (11:35)
[2019-04-06] MEDS ORDERED: TYLENOL EXTRA STRENGTH 500 MG ONE (11:35)
--- NOTE | 2019-04-06 11:38 | ERPHSYRPT ---
- History of Present Illness Time Seen by Provider: 04/06/19 11:18 Patient Subjective Stated Complaint: Pt states "I have had blood clots in my left leg before and today, my lower back hurts and my let and right hips hurt as well as into my right leg. I have had several back surgeries as well." Triage Nursing Assessment: Pt presented alert and oriented X3, skin pwd Pt ambualtes with an upright steady gait, able to speak in clear full sentences. Pt in no apparent respiratory distress. Physician History: Patient is here with right lower back pain and right leg pain. He states it started yesterday. He has a h/o of blood clots and is not taking any medications for it. He is not taking any blood thinners. He states he should be. But, he cannot afford the medications. He has not red flag symptoms for back pain. He no saddle anesthesia, bowel or bladder changes. right lower leg pain is sharp radiation is down the right leg duration is 2 days timing is gradual associated symptoms: no red flag symptoms for back pain Allergies/Adverse Reactions: bee venom protein (honey bee) Allergy (Verified 03/20/19 16:16) morphine Adverse Reaction (Verified 03/20/19 16:16) Tightness in Chest tramadol Adverse Reaction (Verified 03/20/19 16:16) Home Medications: Aspirin EC 325 mg [Ecotrin 325 MG] 325 mg PO DAILY 12/10/15 [History] hydrOXYzine HCl [Hydroxyzine HCl] 10 mg PO DAILY 04/06/19 [History] Hx Tetanus, Diphtheria Vaccination/Date Given: Yes Hx Influenza Vaccination/Date Given: Yes Hx Pneumococcal Vaccination/Date Given: No Immunizations Up to Date: Yes - Review of Systems Constitutional: No Fever, No Chills Eyes: No Symptoms Ears, Nose, & Throat: No Symptoms Respiratory: No Cough, No Dyspnea Cardiac: No Chest Pain, No Edema, No Syncope Abdominal/Gastrointestinal: No Abdominal Pain, No Nausea, No Vomiting, No Diarrhea Genitourinary Symptoms: No Dysuria Musculoskeletal: Back Pain, Other (right leg pain, no left leg pain ), No Neck Pain Skin: No Rash Neurological: No Dizziness, No Focal Weakness, No Sensory Changes Psychological: No Symptoms Endocrine: No Symptoms All Other Systems: Reviewed and Negative - Past Medical History Pertinent Past Medical History: Yes Neurological History: No Pertinent History ENT History: No Pertinent History Cardiac History: Angina, Hypertension, Peripheral Vascular Disease Respiratory History: No Pertinent History Endocrine Medical History: Diabetes Type II Musculoskeletal History: Degenerative Disk Disease, Osteoarthritis, Other GI Medical History: No Pertinent History History: Other Psycho-Social History: No Pertinent History Male Reproductive Disorders: No Pertinent History Other Medical History: kidney stones, pinched nerve,CHRONIC BACK PAIN - Past Surgical History Past Surgical History: Yes Neuro Surgical History: No Pertinent History Cardiac: Cardiac Catheterization, Vascular Surgery Respiratory: No Pertinent History Gastrointestinal: No Pertinent History Genitourinary: No Pertinent History, Other Musculoskeletal: Orthopedic Surgery Male Surgical History: No Pertinent History Other Surgical History: KIDNEY STONE. leg bypass with stent in leg and artificial vein. dental surgery. BACK FUSION SURGERY. neck fusion - Social History Smoking Status: Current every day smoker How long have you smoked: years Exposure to second hand smoke: Yes Alcohol Use: None Drug Use: none Patient Lives Alone: No Significant Family History: hypertension - Nursing Vital Signs Nursing Vital Signs: Initial Vital Signs Temperature 97.7 F 04/06/19 11:15 Pulse Rate 71 04/06/19 11:15 Respiratory Rate 18 04/06/19 11:15 Blood Pressure 149/88 04/06/19 11:15 O2 Sat by Pulse Oximetry 99 04/06/19 11:15 Pain Scale Pain Intensity [Lower Back] 8 Pain Intensity 8 - Physical Exam General Appearance: alert Eyes, Ears, Nose, Throat Exam: moist mucous membranes Neck Exam: non-tender, supple Cardiovascular/Respiratory Exam: chest non-tender, normal breath sounds, regular rate/rhythm, no respiratory distress Gastrointestinal/Abdominal Exam: non-tender, guarding Back Exam: normal inspection, No vertebral tenderness Neuro/Tendon Exam: normal sensation, normal motor functions Mental Status Exam: alert, oriented x 3, cooperative Skin Exam: normal color, warm, dry SpO2: 99 Comments: Right leg pain diffusely without deformity. 2+ pulses, and normal skin tone. full range of motion without pain. Right lower back pain over sciatic nerve. No saddle anesthesia on exam. Ordered Tests: Active Orders 24 hr Category Date Time Status VENOUS UNILAT/LIMITED EXTREMIT [US] Stat Exams 04/06/19 11:31 Completed Medication Summary Discontinued Medications Generic Name Dose Route Start Last Admin Trade Name Freq PRN Reason Stop Dose Admin Acetaminophen 1,000 mg 04/06/19 11:32 04/06/19 11:37 Tylenol Extra Strength 500 Mg PO 04/06/19 11:33 1,000 mg STAT STA Administration Acetaminophen Confirm 04/06/19 11:35 Tylenol Extra Strength 500 Mg Administered 04/06/19 11:36 Dose 1,000 mg .ROUTE .STK-MED ONE Ibuprofen 600 mg 04/06/19 11:32 04/06/19 11:37 Motrin 600 Mg PO 04/06/19 11:33 600 mg STAT ONE Administration Ibuprofen Confirm 04/06/19 11:35 Motrin 600 Mg Administered 04/06/19 11:36 Dose 600 mg .ROUTE .STK-MED ONE - Progress Progress Note: 04/06/19 11:37 We will obtain an u/s of right lower leg. It sounds like muskloskeltal pain. But , we will r/o a DVT. Tylenol and ibuprofen for pain in the ED. 04/06/19 12:33 Ultrasound returned negative for DVT. His pain improved with tylenol/ibuprofen here in the ED. He will need close follow up with PCP. He will return here for any new or changing symptoms. - Departure Departure Disposition: Home Clinical Impression: Right leg pain Condition: Stable Critical Care Time: No Referrals: KASSI COLEMAN [Primary Care Provider] - Instructions: Low Back Pain (DC), Sciatica (DC) Plan of Treatment: Home and follow up with PCP
[2019-04-06 12:11] VITALS: BP 130/78; PULSE 63
--- NOTE | 2019-04-06 12:15 | XRAY ---
Indication: Right leg pain. Two-dimensional sonogram and color Doppler imaging of the major venous vessels of the right leg was performed. Comparison: October 25, 2013. No thrombus seen in the examined deep venous vessels of the right leg including greater saphenous vein. Veins demonstrate normal compressibility. Venous waveforms are normal with and without augmentation. Impression: Right leg again negative for DVT.
[2019-04-06 12:19] VITALS: O2SAT 99
== END 2019-04-06 12:41 | disposition home or self-care (01) ==
LOC: ED 11:11
DX: M79.604 Pain in right leg (principal); Z86.718 Personal history of other venous thrombosis and embolism; I73.9 Peripheral vascular disease, unspecified; E11.9 Type 2 diabetes mellitus without complications; I10 Essential (primary) hypertension; M19.90 Unspecified osteoarthritis, unspecified site
CPT/HCPCS: 93971; 99283; A9270-GY

== ENCOUNTER 2020-02-10 11:16 | Emergency (ER) | payer MEDICAID, OTHER ==
[2020-02-10 11:30] VITALS: O2SAT 97
--- NOTE | 2020-02-10 11:34 | ERPHSYRPT ---
- History of Present Illness Time Seen by Provider: 02/10/20 11:22 Exam Limitations: no limitations Physician History: Patient is a 59-year-old male with a past medical history significant for COPD, ongoing cigarette smoking, in addition to chronic back pain with herniated disc to the lumbar spine and who is status post L5-S1 fusion with hardware noted to the right posterior spine region of L5 presents with a chief complaint of back pain. He states that he bent down a month ago and felt a "pop" in his lower back and has been having pain since that time. The pain is described as a sharp pain localized to the lumbar aspect of his spine and reportedly radiates down both posterior legs. The pain is intermittent and he reportedly has not been taking anything for pain at home because he does not "like taking pills." He denies fever, chills, history of immunosuppression, recent falls, numbness his in his perineum, bladder or bowel incontinence, numbness or weakness in his lower extremities, anticoagulant use, but reports some weight loss in the last 2 months. Pain is currently moderate in severity. He arrives alone and reportedly drove to the emergency department and states that he can secure a ride if needed if he requires sedating pain medications while in the emergency department. Allergies/Adverse Reactions: bee venom protein (honey bee) Allergy (Verified 02/10/20 11:30) morphine Adverse Reaction (Verified 02/10/20 11:30) Tightness in Chest tramadol Adverse Reaction (Verified 02/10/20 11:30) Hx Tetanus, Diphtheria Vaccination/Date Given: Yes Hx Influenza Vaccination/Date Given: Yes Hx Pneumococcal Vaccination/Date Given: No Travel Risk - International Travel Have you traveled outside of the country in past 3 weeks: No - Coronavirus Screening Are you exhibiting any of the following symptoms?: No Close contact with a COVID-19 positive Pt in past 14-21 Days: No - Review of Systems Constitutional: Weight Loss, No Fever, No Chills, No Fatigue Eyes: No Symptoms Ears, Nose, & Throat: No Symptoms Respiratory: No Symptoms Cardiac: No Symptoms Abdominal/Gastrointestinal: No Symptoms Genitourinary Symptoms: No Dysuria, No Frequency, No Hematuria, No Incontinence, No Urgency, No Urinary Retention, No Flank Pain, No Testicle Pain, No Penile Discharge Musculoskeletal: Back Pain, No Deformity, No Fall, No Injury Skin: No Symptoms Neurological: No Focal Weakness, No Headache, No Parasthesia, No Sensory Changes Psychological: No Symptoms Endocrine: No Symptoms Immunological/Allergic: No Symptoms All Other Systems: Reviewed and Negative - Past Medical History Pertinent Past Medical History: Yes Neurological History: No Pertinent History ENT History: No Pertinent History Cardiac History: Angina, Hypertension, Peripheral Vascular Disease Respiratory History: No Pertinent History Endocrine Medical History: Diabetes Type II Musculoskeletal History: Degenerative Disk Disease, Osteoarthritis, Other GI Medical History: No Pertinent History History: Other Psycho-Social History: No Pertinent History Male Reproductive Disorders: No Pertinent History Other Medical History: kidney stones, pinched nerve,CHRONIC BACK PAIN - Past Surgical History Past Surgical History: Yes Neuro Surgical History: No Pertinent History Cardiac: Cardiac Catheterization, Vascular Surgery Respiratory: No Pertinent History Gastrointestinal: No Pertinent History Genitourinary: No Pertinent History, Other Musculoskeletal: Orthopedic Surgery Male Surgical History: No Pertinent History Other Surgical History: KIDNEY STONE. leg bypass with stent in leg and artificial vein. dental surgery. BACK FUSION SURGERY. neck fusion - Social History Smoking Status: Current every day smoker How long have you smoked: years Exposure to second hand smoke: Yes Alcohol Use: None Drug Use: none Patient Lives Alone: No Significant Family History: hypertension - Nursing Vital Signs Nursing Vital Signs: Initial Vital Signs Temperature 98.1 F 02/10/20 11:19 Pulse Rate 75 02/10/20 11:19 Blood Pressure 128/87 02/10/20 11:19 O2 Sat by Pulse Oximetry 97 02/10/20 11:19 Pain Scale Pain Intensity [] 9 Pain Intensity 10 - Physical Exam General Appearance: no apparent distress, alert Eye Exam: PERRL/EOMI Ears, Nose, Throat Exam: normal ENT inspection Neck Exam: normal inspection, No JVD Respiratory Exam: normal breath sounds, lungs clear, airway intact, No chest tenderness, No respiratory distress Cardiovascular Exam: regular rate/rhythm, normal heart sounds, normal peripheral pulses, capillary refill <2 sec Gastrointestinal/Abdomen Exam: soft, other (No pulsating mass), No tenderness, No distention, No mass, No guarding Rectal Exam: deferred Back Exam: vertebral tenderness (Pain noted upon palpation of L5-S1 region), No CVA tenderness Extremity Exam: normal inspection, other (Flexion 4+ bilaterallyKnee extension and knee flexion 4+ bilaterallyDorsi flexion and plantar flexion 4+ bilaterallyHallux extension 4+ bilaterallyThe patient was able to stand on his own and stand on the tips of his toes) Neurologic Exam: alert, oriented x 3, cooperative, normal mood/affect, other (Patellar reflex 2+ bilaterally, no ankle clonus, negative straight leg test), No motor weakness Skin Exam: normal color, warm, dry, No rash, No petechiae SpO2 Interpretation: normal O2 Delivery: Room Air - Course Nursing assessment & vital signs reviewed: Yes - Radiology Exams L-Spine X-ray Interpretation: Interpreted by me, Reviewed by me (No acute process identified. Hardware to L5 -S1 appears intact, R iliac stent present. ) Ordered Tests: Active Orders 24 hr Category Date Time Status LUMBAR LIMITED (2 OR 3 VIEWS) Stat Exams 02/10/20 11:34 Taken BMP Stat Lab 02/10/20 11:48 Completed CBC W DIFF Stat Lab 02/10/20 11:35 Completed UA W/RFX UR CULTURE Stat Lab 02/10/20 12:59 Completed Medication Summary Discontinued Medications Generic Name Dose Route Start Last Admin Trade Name Melinda PRN Reason Stop Dose Admin Hydromorphone HCl 0.5 mg 02/10/20 12:54 02/10/20 13:03 Hydromorphone 1 Mg/Ml Injection IV 02/10/20 12:55 0.5 mg STAT ONE Administration Hydromorphone HCl Confirm 02/10/20 13:00 Hydromorphone 1 Mg/Ml Injection Administered 02/10/20 13:01 Dose 1 mg .ROUTE .STK-MED ONE Ketorolac Tromethamine 15 mg 02/10/20 11:36 02/10/20 11:57 Toradol 30 Mg Injection IV 02/10/20 11:37 15 mg STAT ONE Administration Ketorolac Tromethamine Confirm 02/10/20 11:47 Toradol 30 Mg Injection Administered 02/10/20 11:48 Dose 30 mg .ROUTE .STK-MED ONE Lidocaine 1 patch 02/10/20 11:37 02/10/20 11:57 Lidoderm Patch 5% TOP 02/10/20 11:38 1 patch ONCE STA Administration Lab/Rad Data: Laboratory Result Diagrams 02/10/20 11:35 02/10/20 11:48 Laboratory Results 02/10/20 02/10/2020 Range/Units 12:59 11:48 11:35 WBC 7.3 (4.0-10.5) K/mm3 RBC 4.84 (4.1-5.6) M/mm3 Hgb 14.5 (12.5-18.0) gm/dl Hct 44.1 (42-50) % MCV 91.1 (78-100) fl MCH 30.0 (26-32) pg MCHC 32.9 (32-36) g/dl RDW 13.8 (11.5-14.0) % Plt Count 248 (150-450) K/mm3 MPV 9.6 (7.5-11.0) fl Gran % 50.8 (36.0-66.0) % Eos # (Auto) 0.19 (0-0.5) Absolute Lymphs (auto) 2.76 (1.0-4.6) Absolute Monos (auto) 0.56 (0.0-1.3) Lymphocytes % 38.1 (24.0-44.0) % Monocytes % 7.7 (0.0-12.0) % Eosinophils % 2.6 (0.00-5.0) % Basophils % 0.8 (0.0-0.4) % Absolute Granulocytes 3.68 (1.4-6.9) Basophils # 0.06 (0-0.4) Sodium 137 (137-145) mmol/L Potassium 4.0 (3.5-5.1) mmol/L Chloride 107 (98-107) mmol/L Carbon Dioxide 22 (22-30) mmol/L Anion Gap 11.8 (5-15) MEQ/L BUN 18 (9-20) mg/dL Creatinine 0.85 (0.66-1.25) mg/dL Estimated GFR > 60.0 ML/MIN Glucose 168 H (74-106) mg/dL Calcium 9.8 (8.4-10.2) mg/dL Urine Color YELLOW (YELLOW) Urine Appearance CLEAR (CLEAR) Urine pH 6.0 (5-6) Ur Specific [place] 1.011 (1.005-1.025) Urine Protein NEGATIVE (Negative) Urine Ketones NEGATIVE (NEGATIVE) Urine Blood NEGATIVE (0-5) Rusty/ul Urine Nitrite NEGATIVE (NEGATIVE) Urine Bilirubin NEGATIVE (NEGATIVE) Urine Urobilinogen NEGATIVE (0-1) mg/dL Ur Leukocyte Esterase NEGATIVE (NEGATIVE) Urine WBC (Auto) NONE (0-5) /HPF Urine RBC (Auto) NONE (0-2) /HPF U Epithel Cells (Auto) NONE (FEW) /HPF Urine Bacteria (Auto) NONE (NEGATIVE) /HPF Urine Mucus (Auto) SLIGHT (NEGATIVE) /HPF Urine Culture Reflexed NO (NO) Urine Glucose NEGATIVE (NEGATIVE) mg/dL - Progress Progress: improved Progress Note: 02/10/20 13:22 The patient was reassessed to find that he was feeling better and ready to be discharged. I updated him with his work-up findings as well as my wet read of his x-ray that appears that showed no acute process. I did inform him that the radiologist will need to over read the x-ray and if there is any discrepancies he would be notified and instructed how to proceed accordingly. In the meantime, he was discharged with a prescription for [place] to take for yolanda akthrough pain, ibuprofen in addition to Lidoderm patches and instructed to follow-up with his primary care provider within the next week to inquire about the need for physical therapy. Return precautions for back pain was given. The patient agreed with and verbally understood the discharge plan. 02/10/20 13:24 Patient's son had arrived to the emergency department to provide him transportation home given that he received Dilaudid in the emergency department. Counseled pt/family regarding: lab results, diagnosis, need for follow-up, rad results, smoking cessation - Departure Departure Disposition: Home Clinical Impression: Acute exacerbation of chronic low back pain, Sciatica, Cigarette smoker Condition: Stable Critical Care Time: No Referrals: KASSI FIGUEROA [Primary Care Provider] - Instructions: Low Back Pain (DC), Sciatica (DC) Additional Instructions: Please follow-up with your primary care provider within the next week. Please inquire about the need for physical therapy for your acute on chronic low back pain. If your pain worsens or if you develop weakness in your lower extremities, bladder or bowel incontinence, increased paresthesias in your legs, please return to the emergency department immediately to undergo reevaluation. Prescriptions: Hydrocodone/APAP 5-325 Tab^^^ [[place] 5-325 Tablet^^^] 1 - 2 tab PO Q6HPRN PRN #16 tablet MDD 6 PRN Reason: Pain Ibuprofen 400 mg PO Q8HPRN PRN #30 tablet PRN Reason: Pain Lidocaine HCl 5% Patch [Lidoderm Patch 5%] 1 patch TOP DAILY #7 patch
[2020-02-10] MEDS ORDERED: TORAdol 30 mg Injection IV ONE (11:36)
[2020-02-10] MEDS ORDERED: Lidoderm Patch 5% TOP STA (11:37)
[2020-02-10] MEDS ORDERED: TORAdol 30 mg Injection ONE (11:47)
[2020-02-10 12:10] LABS: Absolute Neutrophil Ct (ANC) 3.68 (1.4-6.9); BASOPHIL % 0.8 % (0.0-0.4); Basophil (Absolute #) 0.06 (0-0.4); Eosinophil % 2.6 % (0.00-5.0); Eosinophil (Absolute #) 0.19 (0-0.5); Hematocrit 44.1 % (42-50); Hemoglobin 14.5 gm/dl (12.5-18.0); Lymphocyte (Absolute #) 2.76 (1.0-4.6); Lymphocytes % 38.1 % (24.0-44.0); Mean Cell Volume 91.1 fl (78-100); Mean Corpuscular Hgb Concent. 32.9 g/dl (32-36); Mean Platelet Volume 9.6 fl (7.5-11.0); Monocyte (Absolute #) 0.56 (0.0-1.3); Monocytes % 7.7 % (0.0-12.0); Neutrophil % 50.8 % (36.0-66.0); Platelet Count 248 K/mm3 (150-450); Red Blood Count 4.84 M/mm3 (4.1-5.6); Red Cell Distribution Width 13.8 % (11.5-14.0); White Blood Count 7.3 K/mm3 (4.0-10.5)
[2020-02-10 12:10] LABS: ANION GAP 11.8 MEQ/L (5-15); BLOOD UREA NITROGEN 18 mg/dL (9-20); CHLORIDE 107 mmol/L (98-107); Calcium 9.8 mg/dL (8.4-10.2); Carbon Dioxide 22 mmol/L (22-30); Creatinine 1 0.85 mg/dL (0.66-1.25); EST GLOMERULAR FILTRATION RATE > 60.0 ML/MIN; Glucose 168 mg/dL (74-106); SODIUM 137 mmol/L (137-145)
[2020-02-10] MEDS ORDERED: Hydromorphone 1 mg/ml Injection IV ONE (12:54)
[2020-02-10] MEDS ORDERED: Hydromorphone 1 mg/ml Injection ONE (13:00)
[2020-02-10 13:10] LABS: Appearance CLEAR (CLEAR); Bilirubin NEGATIVE (NEGATIVE); Blood NEGATIVE Ery/ul (0-5); Glucose NEGATIVE (NEGATIVE); Ketones NEGATIVE (NEGATIVE); Leukocyte Esterase NEGATIVE (NEGATIVE); Mucus SLIGHT /HPF (NEGATIVE); Nitrite NEGATIVE (NEGATIVE); Protein,Urine Dip NEGATIVE (Negative); Specific Gravity 1.011 (1.005-1.025); Urobilinogen NEGATIVE mg/dL (0-1)
[2020-02-10 13:19] VITALS: BP 148/87; PULSE 66
--- NOTE | 2020-02-10 20:37 | XRAY ---
Indication: Low back pain 1 month. Comparison: September 09, 2016. 3 view lumbar spine unchanged again demonstrating L5-S1 fusion with intact right posterior pedicle screws/hardware, grade 1-2 L5 spondylolisthesis, bilateral renal micro-calculi, and aortoiliac calcifications with right iliac stent graft. No new/acute findings.
== END 2020-02-10 13:24 | disposition home or self-care (01) ==
LOC: ED 11:16
DX: M54.5 Low back pain (principal); G89.29 Other chronic pain; R29.6 Repeated falls; M54.30 Sciatica, unspecified side; J44.9 Chronic obstructive pulmonary disease, unspecified; Z72.0 Tobacco use
CPT/HCPCS: 36415; 72100; 80048; 81001; 85025; 96374; 99284; J1170; J1885; A9270-GY

== ENCOUNTER 2020-09-20 10:06 | Emergency (ER) | payer MEDICAID, MEDICARE ==
[2020-09-20 10:48] LABS: Absolute Neutrophil Ct (ANC) 3.57 (1.4-6.9); BASOPHIL % 0.8 % (0.0-0.4); Basophil (Absolute #) 0.07 (0-0.4); Eosinophil (Absolute #) 0.44 (0-0.5); Hematocrit 48.9 % (42-50); Hemoglobin 15.8 gm/dl (12.5-18.0); Lymphocyte (Absolute #) 3.96 (1.0-4.6); Lymphocytes % 45.1 % (24.0-44.0); Mean Cell Volume 89.4 fl (78-100); Mean Corpuscular Hemoglobin 28.9 pg (26-32); Mean Corpuscular Hgb Concent. 32.3 g/dl (32-36); Mean Platelet Volume 9.8 fl (7.5-11.0); Monocyte (Absolute #) 0.75 (0.0-1.3); Monocytes % 8.5 % (0.0-12.0); Neutrophil % 40.6 % (36.0-66.0); Platelet Count 252 K/mm3 (150-450); Red Blood Count 5.47 M/mm3 (4.1-5.6); Red Cell Distribution Width 15.2 % (11.5-14.0); White Blood Count 8.8 K/mm3 (4.0-10.5)
--- NOTE | 2020-09-20 11:03 | XRAY ---
Indication: Lethargy. Comparison: March 20. PA/lateral chest demonstrates normal heart and lungs. Bony thorax intact again with minimal degenerative changes and lower cervical fusion.
[2020-09-20 11:31] LABS: Appearance CLEAR (CLEAR); Bilirubin NEGATIVE (NEGATIVE); Blood NEGATIVE Ery/ul (0-5); Glucose NEGATIVE (NEGATIVE); Ketones NEGATIVE (NEGATIVE); Leukocyte Esterase NEGATIVE (NEGATIVE); Nitrite NEGATIVE (NEGATIVE); Protein,Urine Dip NEGATIVE (Negative); Specific Gravity 1.003 (1.005-1.025); Urobilinogen NEGATIVE mg/dL (0-1)
[2020-09-20 11:41] LABS: Bacteria NONE SEEN /HPF (NEGATIVE); WBC NONE SEEN /HPF (0-5)
[2020-09-20 11:42] LABS: Amphetamine,Urine NEGATIVE (NEGATIVE); Barbiturate,Urine NEGATIVE (NEGATIVE); Benzodiazepine,Urine NEGATIVE (NEGATIVE); Cocaine,Urine NEGATIVE (NEGATIVE); Methadone,Urine NEGATIVE (NEGATIVE); Opiate,Urine NEGATIVE (NEGATIVE); PCP,Urine NEGATIVE (NEGATIVE); THC,Urine NEGATIVE (NEGATIVE)
[2020-09-20 11:50] LABS: ALBUMIN 4.7 g/dL (3.5-5.0); ALKALINE PHOSPHATASE 56 U/L (38-126); ANION GAP 14.4 MEQ/L (5-15); BLOOD UREA NITROGEN 20 mg/dL (9-20); CHLORIDE 104 mmol/L (98-107); Carbon Dioxide 26 mmol/L (22-30); Creatinine 1 1.01 mg/dL (0.66-1.25); EST GLOMERULAR FILTRATION RATE > 60.0 ML/MIN; Glucose 106 mg/dL (74-106); Potassium 4.4 mmol/L (3.5-5.1); SGOT/AST 30 U/L (17-59); SGPT/ALT 19 U/L (0-50); SODIUM 139 mmol/L (137-145); Total Protein 8.1 g/dL (6.3-8.2)
--- NOTE | 2020-09-20 11:55 | ERPHSYRPT ---
- History of Present Illness Source: patient Exam Limitations: other (Poor Historian) Patient Subjective Stated Complaint: pt here for extreame fatigue for 2 weeks, with some dizziness and pain to chest off and on,, no fever Triage Nursing Assessment: pt alert, resp easy, skin w/d/p , has dry cough he staes is from smoking, Physician History: 59 yo wm w lethargy x 2 wks. Pt denies N/V/D/Melena/hematochezia/dysuria/hematuria/fever/current chest pain/focal weakness/cough/ST/dyspnea. Timing/Duration: other (2wks) Severity: moderate Modifying Factors: Improves With: nothing Associated Symptoms: malaise, weakness, No nausea, No vomiting, No abdominal pain, No shortness of breath, No heartburn, No diaphoresis, No cough, No chills, No chest pain, No fever, No headaches, No loss of appetite, No rash, No syncope, No seizure Allergies/Adverse Reactions: bee venom protein (honey bee) Allergy (Verified 09/20/20 10:19) morphine Adverse Reaction (Verified 09/20/20 10:19) Tightness in Chest tramadol Adverse Reaction (Verified 09/20/20 10:19) Hx Tetanus, Diphtheria Vaccination/Date Given: Yes Hx Influenza Vaccination/Date Given: No Hx Pneumococcal Vaccination/Date Given: No Immunizations Up to Date: Yes Travel Risk - International Travel Have you traveled outside of the country in past 3 weeks: No - Coronavirus Screening Are you exhibiting any of the following symptoms?: Yes Symptoms: Headaches/Body Aches/Fatigue Close contact with a COVID-19 positive Pt in past 14-21 Days: No - Vaccine Status Have you recieved a Covid-19 vaccination: No - Review of Systems Constitutional: No Symptoms, Weakness Eyes: No Symptoms Ears, Nose, & Throat: No Symptoms Respiratory: No Symptoms Cardiac: No Symptoms Abdominal/Gastrointestinal: No Symptoms Genitourinary Symptoms: No Symptoms Musculoskeletal: No Symptoms Skin: No Symptoms Neurological: No Symptoms Psychological: No Symptoms Endocrine: No Symptoms Hematologic/Lymphatic: No Symptoms Immunological/Allergic: No Symptoms - Past Medical History Pertinent Past Medical History: Yes Neurological History: No Pertinent History ENT History: No Pertinent History Cardiac History: Angina, Hypertension, Myocardial Infarction ([place]), Peripheral Vascular Disease Respiratory History: No Pertinent History Endocrine Medical History: Diabetes Type II Musculoskeletal History: Other GI Medical History: No Pertinent History History: Other Psycho-Social History: No Pertinent History Male Reproductive Disorders: No Pertinent History Other Medical History: back problems , dvt - Past Surgical History Past Surgical History: Yes Neuro Surgical History: No Pertinent History Cardiac: Cardiac Catheterization, Vascular Surgery Respiratory: No Pertinent History Gastrointestinal: No Pertinent History Genitourinary: No Pertinent History, Other Musculoskeletal: Orthopedic Surgery Male Surgical History: No Pertinent History Other Surgical History: back x3, kidney stone removal, dvt - Social History Smoking Status: Current every day smoker How long have you smoked: years Exposure to second hand smoke: Yes Alcohol Use: None Drug Use: none Patient Lives Alone: No Significant Family History: hypertension - Nursing Vital Signs Nursing Vital Signs: Initial Vital Signs Temperature 97.6 F 09/20/20 10:11 Pulse Rate 66 09/20/20 10:11 Respiratory Rate 18 09/20/20 10:11 Blood Pressure 168/100 09/20/20 10:11 O2 Sat by Pulse Oximetry 98 09/20/20 10:11 Pain Scale Pain Intensity 3 - Physical Exam General Appearance: no apparent distress Eye Exam: PERRL/EOMI, eyes nml inspection Ears, Nose, Throat Exam: normal ENT inspection, TMs normal, pharyngeal erythema Neck Exam: normal inspection, non-tender, supple, full range of motion, No meningismus, No mass, No Brudzinski, No Kernig's Respiratory Exam: airway intact, crackles/rales (Faint rales L base), No respiratory distress Cardiovascular Exam: regular rate/rhythm, normal heart sounds, No murmur Gastrointestinal/Abdomen Exam: soft, normal bowel sounds, No tenderness Back Exam: normal inspection, normal range of motion, No CVA tenderness, No vertebral tenderness Extremity Exam: normal inspection, normal range of motion Neurologic Exam: alert, oriented x 3, cooperative, white sugar boiler II-XII nml as tested, normal mood/affect, nml cerebellar function, nml station & gait, sensation nml, No motor deficits, No sensory deficit Skin Exam: normal color, warm, dry Lymphatic Exam: No adenopathy SpO2 Interpretation: normal SpO2: 98 O2 Delivery: Room Air - Course EKG Interpreted by Me: RATE (NSR/R65/Low voltage/Nornal QT-QTc/No acute ST-T wave changes) - Radiology Exams Chest X-ray Interpretation: Discussed w/ radiologist (NAD) Ordered Tests: Active Orders 24 hr Category Date Time Status EKG-ER Only STAT Care 09/20/20 10:31 Completed CHEST 2 VIEWS (PA AND LAT) Stat Exams 09/20/20 10:45 Completed CBC W DIFF Stat Lab 09/20/20 10:42 Completed CMP Stat Lab 09/20/20 10:42 Completed Lactic Acid Stat Lab 09/20/20 10:42 Completed Gilmer Screen Stat Lab 09/20/20 11:00 Completed TROPONIN Q3H Lab 09/20/20 10:30 Completed TSH [TSH, 3RD Generation] Stat Lab 09/20/20 11:00 Completed UA W/RFX UR CULTURE Stat Lab 09/20/20 11:18 Completed Urine Triage Profile Stat Lab 09/20/20 10:42 Completed Lab/Rad Data: Laboratory Result Diagrams 09/20/20 10:42 09/20/20 10:42 Laboratory Results 09/20/20 09/20/20 09/20/20 Range/Units 11:18 11:00 11:00 WBC (4.0-10.5) K/mm3 RBC (4.1-5.6) M/mm3 Hgb (12.5-18.0) gm/dl Hct (42-50) % MCV (78-100) fl MCH (26-32) pg MCHC (32-36) g/dl RDW (11.5-14.0) % Plt Count (150-450) K/mm3 MPV (7.5-11.0) fl Gran % (36.0-66.0) % Eos # (Auto) (0-0.5) Absolute Lymphs (auto) (1.0-4.6) Absolute Monos (auto) (0.0-1.3) Lymphocytes % (24.0-44.0) % Monocytes % (0.0-12.0) % Eosinophils % (0.00-5.0) % Basophils % (0.0-0.4) % Absolute Granulocytes (1.4-6.9) Basophils # (0-0.4) Sodium (137-145) mmol/L Potassium (3.5-5.1) mmol/L Chloride (98-107) mmol/L Carbon Dioxide (22-30) mmol/L Anion Gap (5-15) MEQ/L BUN (9-20) mg/dL Creatinine (0.66-1.25) mg/dL Estimated GFR ML/MIN Glucose (74-106) mg/dL Lactic Acid (0.4-2.0) Calcium (8.4-10.2) mg/dL Total Bilirubin (0.2-1.3) mg/dL AST (17-59) U/L ALT (0-50) U/L Alkaline Phosphatase (38-126) U/L Troponin I (0.000-0.034) ng/mL Serum Total Protein (6.3-8.2) g/dL Albumin (3.5-5.0) g/dL Free T4 1.14 (0.76-1.46) ng/dL TSH 3rd Generation (0.47-4.68) mIU/L Urine Color STRAW (YELLOW) Urine Appearance CLEAR (CLEAR) Urine pH 6.0 (5-6) Ur Specific Pavo 1.003 (1.005-1.025) Urine Protein NEGATIVE (Negative) Urine Ketones NEGATIVE (NEGATIVE) Urine Blood NEGATIVE (0-5) Rusty/ul Urine Nitrite NEGATIVE (NEGATIVE) Urine Bilirubin NEGATIVE (NEGATIVE) Urine Urobilinogen NEGATIVE (0-1) mg/dL Ur Leukocyte Esterase NEGATIVE (NEGATIVE) Urine WBC (Auto) NONE SEEN (0-5) /HPF Urine RBC (Auto) NONE (0-2) /HPF U Epithel Cells (Auto) NONE (FEW) /HPF Urine Bacteria (Auto) NONE SEEN (NEGATIVE) /HPF Urine Culture Reflexed NO (NO) Urine Glucose NEGATIVE (NEGATIVE) mg/dL Urine Opiates Level (NEGATIVE) Ur Methadone (NEGATIVE) Urine Barbiturates (NEGATIVE) Ur Phencyclidine (PCP) (NEGATIVE) Urine Amphetamine (NEGATIVE) U Benzodiazepine Level (NEGATIVE) Urine Cocaine (NEGATIVE) Urine Marijuana (THC) (NEGATIVE) Monoscreen (Negative) Group A Strep Antibody NOT DETECTED (NEGATIVE) 09/20/20 09/20/20 09/20/20 Range/Units 11:00 11:00 10:42 WBC (4.0-10.5) K/mm3 RBC (4.1-5.6) M/mm3 Hgb (12.5-18.0) gm/dl Hct (42-50) % MCV (78-100) fl MCH (26-32) pg MCHC (32-36) g/dl RDW (11.5-14.0) % Plt Count (150-450) K/mm3 MPV (7.5-11.0) fl Gran % (36.0-66.0) % Eos # (Auto) (0-0.5) Absolute Lymphs (auto) (1.0-4.6) Absolute Monos (auto) (0.0-1.3) Lymphocytes % (24.0-44.0) % Monocytes % (0.0-12.0) % Eosinophils % (0.00-5.0) % Basophils % (0.0-0.4) % Absolute Granulocytes (1.4-6.9) Basophils # (0-0.4) Sodium (137-145) mmol/L Potassium (3.5-5.1) mmol/L Chloride (98-107) mmol/L Carbon Dioxide (22-30) mmol/L Anion Gap (5-15) MEQ/L BUN (9-20) mg/dL Creatinine (0.66-1.25) mg/dL Estimated GFR ML/MIN Glucose (74-106) mg/dL Lactic Acid 1.0 (0.4-2.0) Calcium (8.4-10.2) mg/dL Total Bilirubin (0.2-1.3) mg/dL AST (17-59) U/L ALT (0-50) U/L Alkaline Phosphatase (38-126) U/L Troponin I (0.000-0.034) ng/mL Serum Total Protein (6.3-8.2) g/dL Albumin (3.5-5.0) g/dL Free T4 (0.76-1.46) ng/dL TSH 3rd Generation 1.810 (0.47-4.68) mIU/L Urine Color (YELLOW) Urine Appearance (CLEAR) Urine pH (5-6) Ur Specific Pavo (1.005-1.025) Urine Protein (Negative) Urine Ketones (NEGATIVE) Urine Blood (0-5) Rusty/ul Urine Nitrite (NEGATIVE) Urine Bilirubin (NEGATIVE) Urine Urobilinogen (0-1) mg/dL Ur Leukocyte Esterase (NEGATIVE) Urine WBC (Auto) (0-5) /HPF Urine RBC (Auto) (0-2) /HPF U Epithel Cells (Auto) (FEW) /HPF Urine Bacteria (Auto) (NEGATIVE) /HPF Urine Culture Reflexed (NO) Urine Glucose (NEGATIVE) mg/dL Urine Opiates Level (NEGATIVE) Ur Methadone (NEGATIVE) Urine Barbiturates (NEGATIVE) Ur Phencyclidine (PCP) (NEGATIVE) Urine Amphetamine (NEGATIVE) U Benzodiazepine Level (NEGATIVE) Urine Cocaine (NEGATIVE) Urine Marijuana (THC) (NEGATIVE) Monoscreen NEGATIVE (Negative) Group A Strep Antibody (NEGATIVE) 09/20/20 09/20/20 09/20/20 Range/Units 10:42 10:42 10:42 WBC 8.8 (4.0-10.5) K/mm3 RBC 5.47 (4.1-5.6) M/mm3 Hgb 15.8 (12.5-18.0) gm/dl Hct 48.9 (42-50) % MCV 89.4 (78-100) fl MCH 28.9 (26-32) pg MCHC 32.3 (32-36) g/dl RDW 15.2 H (11.5-14.0) % Plt Count 252 (150-450) K/mm3 MPV 9.8 (7.5-11.0) fl Gran % 40.6 (36.0-66.0) % Eos # (Auto) 0.44 (0-0.5) Absolute Lymphs (auto) 3.96 (1.0-4.6) Absolute Monos (auto) 0.75 (0.0-1.3) Lymphocytes % 45.1 H (24.0-44.0) % Monocytes % 8.5 (0.0-12.0) % Eosinophils % 5.0 (0.00-5.0) % Basophils % 0.8 (0.0-0.4) % Absolute Granulocytes 3.57 (1.4-6.9) Basophils # 0.07 (0-0.4) Sodium 139 (137-145) mmol/L Potassium 4.4 (3.5-5.1) mmol/L Chloride 104 (98-107) mmol/L Carbon Dioxide 26 (22-30) mmol/L Anion Gap 14.4 (5-15) MEQ/L BUN 20 (9-20) mg/dL Creatinine 1.01 (0.66-1.25) mg/dL Estimated GFR > 60.0 ML/MIN Glucose 106 (74-106) mg/dL Lactic Acid (0.4-2.0) Calcium 10.0 (8.4-10.2) mg/dL Total Bilirubin 0.30 (0.2-1.3) mg/dL AST 30 (17-59) U/L ALT 19 (0-50) U/L Alkaline Phosphatase 56 (38-126) U/L Troponin I (0.000-0.034) ng/mL Serum Total Protein 8.1 (6.3-8.2) g/dL Albumin 4.7 (3.5-5.0) g/dL Free T4 (0.76-1.46) ng/dL TSH 3rd Generation (0.47-4.68) mIU/L Urine Color (YELLOW) Urine Appearance (CLEAR) Urine pH (5-6) Ur Specific Pavo (1.005-1.025) Urine Protein (Negative) Urine Ketones (NEGATIVE) Urine Blood (0-5) Rusty/ul Urine Nitrite (NEGATIVE) Urine Bilirubin (NEGATIVE) Urine Urobilinogen (0-1) mg/dL Ur Leukocyte Esterase (NEGATIVE) Urine WBC (Auto) (0-5) /HPF Urine RBC (Auto) (0-2) /HPF U Epithel Cells (Auto) (FEW) /HPF Urine Bacteria (Auto) (NEGATIVE) /HPF Urine Culture Reflexed (NO) Urine Glucose (NEGATIVE) mg/dL Urine Opiates Level NEGATIVE (NEGATIVE) Ur Methadone NEGATIVE (NEGATIVE) Urine Barbiturates NEGATIVE (NEGATIVE) Ur Phencyclidine (PCP) NEGATIVE (NEGATIVE) Urine Amphetamine NEGATIVE (NEGATIVE) U Benzodiazepine Level NEGATIVE (NEGATIVE) Urine Cocaine NEGATIVE (NEGATIVE) Urine Marijuana (THC) NEGATIVE (NEGATIVE) Monoscreen (Negative) Group A Strep Antibody (NEGATIVE) 09/20/20 Range/Units 10:30 WBC (4.0-10.5) K/mm3 RBC (4.1-5.6) M/mm3 Hgb (12.5-18.0) gm/dl Hct (42-50) % MCV (78-100) fl MCH (26-32) pg MCHC (32-36) g/dl RDW (11.5-14.0) % Plt Count (150-450) K/mm3 MPV (7.5-11.0) fl Gran % (36.0-66.0) % Eos # (Auto) (0-0.5) Absolute Lymphs (auto) (1.0-4.6) Absolute Monos (auto) (0.0-1.3) Lymphocytes % (24.0-44.0) % Monocytes % (0.0-12.0) % Eosinophils % (0.00-5.0) % Basophils % (0.0-0.4) % Absolute Granulocytes (1.4-6.9) Basophils # (0-0.4) Sodium (137-145) mmol/L Potassium (3.5-5.1) mmol/L Chloride (98-107) mmol/L Carbon Dioxide (22-30) mmol/L Anion Gap (5-15) MEQ/L BUN (9-20) mg/dL Creatinine (0.66-1.25) mg/dL Estimated GFR ML/MIN Glucose (74-106) mg/dL Lactic Acid (0.4-2.0) Calcium (8.4-10.2) mg/dL Total Bilirubin (0.2-1.3) mg/dL AST (17-59) U/L ALT (0-50) U/L Alkaline Phosphatase (38-126) U/L Troponin I < 0.012 (0.000-0.034) ng/mL Serum Total Protein (6.3-8.2) g/dL Albumin (3.5-5.0) g/dL Free T4 (0.76-1.46) ng/dL TSH 3rd Generation (0.47-4.68) mIU/L Urine Color (YELLOW) Urine Appearance (CLEAR) Urine pH (5-6) Ur Specific Pavo (1.005-1.025) Urine Protein (Negative) Urine Ketones (NEGATIVE) Urine Blood (0-5) Rusty/ul Urine Nitrite (NEGATIVE) Urine Bilirubin (NEGATIVE) Urine Urobilinogen (0-1) mg/dL Ur Leukocyte Esterase (NEGATIVE) Urine WBC (Auto) (0-5) /HPF Urine RBC (Auto) (0-2) /HPF U Epithel Cells (Auto) (FEW) /HPF Urine Bacteria (Auto) (NEGATIVE) /HPF Urine Culture Reflexed (NO) Urine Glucose (NEGATIVE) mg/dL Urine Opiates Level (NEGATIVE) Ur Methadone (NEGATIVE) Urine Barbiturates (NEGATIVE) Ur Phencyclidine (PCP) (NEGATIVE) Urine Amphetamine (NEGATIVE) U Benzodiazepine Level (NEGATIVE) Urine Cocaine (NEGATIVE) Urine Marijuana (THC) (NEGATIVE) Monoscreen (Negative) Group A Strep Antibody (NEGATIVE) - Progress Counseled pt/family regarding: lab results, diagnosis, need for follow-up, rad results - Departure Departure Disposition: Home Clinical Impression: Lethargy Condition: Stable Critical Care Time: No Referrals: KASSI FIGUEROA [Primary Care Provider] - Instructions: Fatigue (DC) Additional Instructions: Follow up with your family MD Return to ER as needed
[2020-09-20 13:19] VITALS: BP 171/94; PULSE 60
[2020-09-20 20:55] VITALS: O2SAT 98
== END 2020-09-20 13:13 | disposition home or self-care (01) ==
LOC: ED 10:06
DX: R53.83 Other fatigue (principal)
CPT/HCPCS: 36415; 71046; 80053; 80307; 81001; 83605; 84439; 84443; 84484; 85025; 86308; 87651; 93005; 99284; U0003

== ENCOUNTER 2022-03-23 09:04 | Emergency (ER) | payer MEDICAID ==
[2022-03-23] MEDS ORDERED: solu-MEDROL 125 MG, Sterile H2O 10 ml 2 ML IV ONE ×2 (09:15)
[2022-03-23] MEDS ORDERED: DUONEB 0.5-3 MG/3 ml Neb IH ONE ×2 (09:16→09:41)
--- NOTE | 2022-03-23 09:21 | ERPHSYRPT ---
- History of Present Illness Time Seen by Provider: 03/23/22 09:19 Source: patient Physician History: Patient is a 61-year-old male with a history of COPD, active smoker presents to our ED for evaluation of shortness of breath. Patient just moved back to the area from [place]. Patient has not taken his COPD medications as he states he ran out. Patient does not have a primary care doctor locally and is requesting one. Patient shortness of breath started 2 days ago. Symptoms have been progre ssive. No associated chest pain. No nausea vomiting or diaphoresis. Shortness of breath worse with exertion improves with rest. Symptoms are typical of his usual COPD exacerbation. Patient has been coughing. Cough occasionally productive. No fever. Patient states he has a history of diabetes. He was on metformin but states that his doctor pulled him off of metformin because his sugars were well controlled with diet. Patient states otherwise healthy. He voices no other complaints or concerns at this time. Portions of this note were created with voice recognition technology. There may be grammatical, spelling, punctuation or sound alike errors Timing/Duration: day(s) (2 days ago) Activities at Onset: activity Severity of Dyspnea-Max: moderate Severity of Dyspnea-Current: mild Possible Cause: occasional episodes Modifying Factors: Improves With: exertion Associated Symptoms: cough, wheezing, No chest pain/discomfort, No edema Allergies/Adverse Reactions: bee venom protein (honey bee) Allergy (Verified 03/23/22 09:23) morphine Adverse Reaction (Verified 03/23/22 09:23) Tightness in Chest tramadol Adverse Reaction (Verified 03/23/22 09:23) Hx Tetanus, Diphtheria Vaccination/Date Given: Yes Hx Influenza Vaccination/Date Given: No Hx Pneumococcal Vaccination/Date Given: No Travel Risk - Vaccine Status Have you recieved a Covid-19 vaccination: No - Review of Systems Constitutional: No Symptoms, No Fever, No Chills Eyes: No Symptoms Ears, Nose, & Throat: No Symptoms Respiratory: No Symptoms, No Cough, No Dyspnea Cardiac: No Symptoms, No Chest Pain, No Edema, No Syncope Abdominal/Gastrointestinal: No Symptoms, No Abdominal Pain, No Nausea, No Vomiting, No Diarrhea Genitourinary Symptoms: No Symptoms, No Dysuria Musculoskeletal: No Symptoms, No Back Pain, No Neck Pain Skin: No Symptoms, No Rash Neurological: No Symptoms, No Dizziness, No Focal Weakness, No Sensory Changes Psychological: No Symptoms Endocrine: No Symptoms Hematologic/Lymphatic: No Symptoms Immunological/Allergic: No Symptoms All Other Systems: Reviewed and Negative - Past Medical History Pertinent Past Medical History: Yes Neurological History: No Pertinent History ENT History: No Pertinent History Cardiac History: Angina, Hypertension, Myocardial Infarction (MT), Peripheral Vascular Disease Respiratory History: No Pertinent History Endocrine Medical History: Diabetes Type II Musculoskeletal History: Other GI Medical History: No Pertinent History History: Other Psycho-Social History: No Pertinent History Male Reproductive Disorders: No Pertinent History Other Medical History: back problems , dvt - Past Surgical History Past Surgical History: Yes Neuro Surgical History: No Pertinent History Cardiac: Cardiac Catheterization, Vascular Surgery Respiratory: No Pertinent History Gastrointestinal: No Pertinent History Genitourinary: No Pertinent History, Other Musculoskeletal: Orthopedic Surgery Male Surgical History: No Pertinent History Other Surgical History: back x3, kidney stone removal, dvt - Social History Smoking Status: Current every day smoker How long have you smoked: years Exposure to second hand smoke: Yes Alcohol Use: None Drug Use: none Patient Lives Alone: No Significant Family History: hypertension - Nursing Vital Signs Nursing Vital Signs: Initial Vital Signs Temperature 98.1 F 03/23/22 09:12 Pulse Rate 72 03/23/22 09:12 Respiratory Rate 23 03/23/22 09:12 Blood Pressure 175/86 03/23/22 09:12 O2 Sat by Pulse Oximetry 96 03/23/22 09:12 Pain Scale Pain Intensity 0 - Physical Exam General Appearance: no apparent distress, alert Eye Exam: PERRL/EOMI Ears, Nose, Throat Exam: hearing grossly normal, normal ENT inspection, normal pharynx Neck Exam: normal inspection, non-tender, supple Respiratory Exam: diminished breath sounds, prolonged expirations, wheezing, No stridor Cardiovascular/Chest Exam: normal heart sounds, regular rate/rhythm Abdominal/Gastrointestinal Exam: soft, No tenderness, No distention, No mass Extremity Exam: non-tender, normal range of motion, normal inspection, no calf tenderness, no pedal edema Neurologic Exam: alert, oriented x 3, cooperative, collections and archives director II-XII nml as tested, sensation nml, No motor deficits Skin Exam: normal color, warm, No dry Lymphatic Exam: No adenopathy SpO2 Interpretation: normal SpO2: 98 O2 Delivery: Room Air - Course Nursing assessment & vital signs reviewed: Yes EKG Interpreted by Me: RATE (72), Sinus Rhythm, NORMAL AXIS, NORMAL INTERVALS - CT Exams Chest CT Interpretation: Tele-radiologist Report (Negative for PE. Hilar lymphadenopathy. Hiatal hernia, nephrolithiasis otherwise negative) Ordered Tests: Active Orders 24 hr Category Date Time Status AMA [Release AMA] OM.NOW Care 03/23/22 11:18 Completed Social Media Sr Strategy Manager STAT Care 03/23/22 09:10 Completed EKG-ER Only STAT Care 03/23/22 09:07 Completed IV Insertion STAT Care 03/23/22 09:07 Completed Pulse Oximetry (ED) STAT Care 03/23/22 09:07 Completed CHEST WITH CONTRAST [CT] Stat Exams 03/23/22 11:36 Completed BLOOD CULTURE Stat Lab 03/23/22 09:30 Received CBC W DIFF Stat Lab 03/23/22 09:20 Completed CMP Stat Lab 03/23/22 09:20 Completed D-DIMER QUANTITATIVE Stat Lab 03/23/22 09:20 Completed Lactic Acid Stat Lab 03/23/22 09:15 Completed NT PRO BNP Stat Lab 03/23/22 09:20 Completed TROPONIN Q4H Lab 03/23/22 09:20 Completed Medication Summary Discontinued Medications Generic Name Dose Route Start Last Admin Trade Name Freq PRN Reason Stop Dose Admin Albuterol/Ipratropium 3 ml 03/23/22 09:16 03/23/22 09:42 Ipratropium/Albuterol Sulfate 3 Ml Ampul.Neb IH 03/23/22 09:17 3 ml STAT ONE Administration Albuterol/Ipratropium Confirm 03/23/22 09:41 Ipratropium/Albuterol Sulfate 3 Ml Ampul.Neb Administered 03/23/22 09:42 Dose 3 ml IH .STK-MED ONE Methylprednisolone Sodium 0 mg 03/23/22 09:15 03/23/22 09:59 Succinate 125 mg/ Sterile IV 03/23/22 09:16 125 mg Water 2 ml STAT ONE Administration Azithromycin 500 mg in 250 mls @ 250 mls/hr 03/23/22 09:22 03/23/22 10:59 Zithromax 500 Mg/ 250 Ml Nacl Premix IV 03/23/22 10:21 Infused STAT STA Infusion Ceftriaxone Sodium/Dextrose 2 g in 50 mls @ 100 mls/hr 03/23/22 09:22 03/23/22 10:30 Rocephin 2 Gm-D5w 50ml Bag IV 03/23/22 09:51 Infused STAT STA Infusion Azithromycin Confirm 03/23/22 09:29 Zithromax 500 Mg/ 250 Ml Nacl Premix Administered 03/23/22 09:30 Dose 500 mg in 250 mls @ ud IV .STK-MED ONE Ceftriaxone Sodium/Dextrose Confirm 03/23/22 09:29 Rocephin 2 Gm-D5w 50ml Bag Administered 03/23/22 09:30 Dose 2 g in 50 mls @ ud IV .STK-MED ONE Methylprednisolone Sodium Succinate Confirm 03/23/22 09:29 Methylprednis Sod Succ 125 Mg/2 Ml Vial Administered 03/23/22 09:30 Dose 125 mg .ROUTE .STK-MED ONE Sterile Water Confirm 03/23/22 09:29 Water For Injection,Sterile 10 Ml Vial Administered 03/23/22 09:30 Dose 10 ml IJ .STK-MED ONE Lab/Rad Data: Laboratory Result Diagrams 03/23/22 09:20 03/23/22 09:20 Laboratory Results 03/23/22 03/23/22 03/23/22 Range/Units 09: 09:20 09:20 WBC (4.0-10.5) x10^3/uL RBC (4.1-5.6) x10^6/uL Hgb (12.5-18.0) g/dL Hct (42-50) % MCV (78-100) fL MCH (26-32) pg MCHC (32-36) g/dL RDW (11.5-14.0) % Plt Count (150-450) x10^3/uL MPV (7.5-11.0) fL Gran % (36.0-66.0) % Immature Gran % (Auto) (0.00-0.4) % Nucleat RBC Rel Count (0.00-0.1) % Eos # (Auto) (0-0.5) x10^3/uL Immature Gran # (Auto) (0.00-0.03) x10^3u/L Absolute Lymphs (auto) (1.0-4.6) x10^3/uL Absolute Monos (auto) (0.0-1.3) x10^3/uL Absolute Nucleated RBC (0.00-0.01) x10^3u/L Lymphocytes % (24.0-44.0) % Monocytes % (0.0-12.0) % Eosinophils % (0.00-5.0) % Basophils % (0.0-0.4) % Absolute Granulocytes (1.4-6.9) x10^3/uL Basophils # (0-0.4) x10^3/uL D-Dimer 0.75 H* (0.0-0.50) mg/L Sodium (137-145) mmol/L Potassium (3.5-5.1) mmol/L Chloride (98-107) mmol/L Carbon Dioxide (22-30) mmol/L Anion Gap (5-15) MEQ/L BUN (9-20) mg/dL Creatinine (0.66-1.25) mg/dL Estimated GFR ML/MIN Glucose (74-106) mg/dL Lactic Acid (0.4-2.0) Calcium (8.4-10.2) mg/dL Total Bilirubin (0.2-1.3) mg/dL AST (17-59) U/L ALT (0-50) U/L Alkaline Phosphatase (38-126) U/L Troponin I < 0.012 (0.000-0.034) ng/mL NT-Pro-B Natriuret Pep (0-900) pg/mL Serum Total Protein (6.3-8.2) g/dL Albumin (3.5-5.0) g/dL Influenza Type A Ag NEGATIVE (NEGATIVE) Influenza Type B Ag NEGATIVE (NEGATIVE) RSV (PCR) NEGATIVE (Negative) SARS-CoV-2 (PCR) NEGATIVE (NEGATIVE) 03/23/22 03/23/22 03/23/22 Range/Units 09:20 09:20 09:15 WBC 9.4 (4.0-10.5) x10^3/uL RBC 5.12 (4.1-5.6) x10^6/uL Hgb 15.3 (12.5-18.0) g/dL Hct 46.5 (42-50) % MCV 90.8 (78-100) fL MCH 29.9 (26-32) pg MCHC 32.9 (32-36) g/dL RDW 13.8 (11.5-14.0) % Plt Count 193 (150-450) x10^3/uL MPV 10.9 (7.5-11.0) fL Gran % 54.2 (36.0-66.0) % Immature Gran % (Auto) 0.5 H (0.00-0.4) % Nucleat RBC Rel Count 0.0 (0.00-0.1) % Eos # (Auto) 0.44 (0-0.5) x10^3/uL Immature Gran # (Auto) 0.05 H (0.00-0.03) x10^3u/L Absolute Lymphs (auto) 2.76 (1.0-4.6) x10^3/uL Absolute Monos (auto) 0.92 (0.0-1.3) x10^3/uL Absolute Nucleated RBC 0.00 (0.00-0.01) x10^3u/L Lymphocytes % 29.5 (24.0-44.0) % Monocytes % 9.8 (0.0-12.0) % Eosinophils % 4.7 (0.00-5.0) % Basophils % 1.3 (0.0-0.4) % Absolute Granulocytes 5.06 (1.4-6.9) x10^3/uL Basophils # 0.12 (0-0.4) x10^3/uL D-Dimer (0.0-0.50) mg/L Sodium 135 L (137-145) mmol/L Potassium 4.2 (3.5-5.1) mmol/L Chloride 104 (98-107) mmol/L Carbon Dioxide 22 (22-30) mmol/L Anion Gap 13.2 (5-15) MEQ/L BUN 21 H (9-20) mg/dL Creatinine 1.00 (0.66-1.25) mg/dL Estimated GFR > 60.0 ML/MIN Glucose 104 (74-106) mg/dL Lactic Acid 1.4 (0.4-2.0) Calcium 9.4 (8.4-10.2) mg/dL Total Bilirubin 0.80 (0.2-1.3) mg/dL AST 30 (17-59) U/L ALT 21 (0-50) U/L Alkaline Phosphatase 61 (38-126) U/L Troponin I (0.000-0.034) ng/mL NT-Pro-B Natriuret Pep 21.4 (0-900) pg/mL Serum Total Protein 8.3 H (6.3-8.2) g/dL Albumin 4.5 (3.5-5.0) g/dL Influenza Type A Ag (NEGATIVE) Influenza Type B Ag (NEGATIVE) RSV (PCR) (Negative) SARS-CoV-2 (PCR) (NEGATIVE) - Progress Progress: improved Air Movement: good Progress Note: Patient left our ED before results of CT scan. Patient is of sound mind. Patient is appropriate to make informed and independent medical decisions. Patient understands that leaving AGAINST MEDICAL ADVICE can result in delayed diagnosis, increased risk of morbidity, mortality, short and long-term disability including . In spite of these risks, patient has decided to leave AGAINST MEDICAL ADVICE. Patient understands that he/she may return to our ED at any point if he or she reconsiders. Patient agrees to follow-up with his or her primary care doctor within 48 hours for reevaluation. Patient voices no other complaints or concerns at this time. We will release patient AGAINST MEDICAL ADVICE per their request. 03/23/22 16:57 03/24/22 02:40 Blood Culture(s) Obtained: Yes Antibiotics given: Yes Discussed with : Mable Will see patient in: office Counseled pt/family regarding: lab results, diagnosis, need for follow-up, rad results - Departure Departure Disposition: AMA Clinical Impression: Non compliance w medication regimen, COPD exacerbation Condition: Stable Critical Care Time: No Referrals: KASSI HARDIN [Primary Care Provider] - Follow up/PCP as directed Instructions: Chronic Obstructive Pulmonary Disease Additional Instructions: Discharge/Care Plan PAULINOANDREI TENA was seen on 03/23/22 in the Emergency Room. The patient was counseled regarding Diagnosis,Lab results, Imaging studies, need for follow up and when to return to the Emergency Room. Prescriptions given: Discharge Note I have spoken with the patient and/or caregivers. I have explained the patient's condition, diagnosis and treatment plan based on the information available to me at this time. I have answered the patient's and/or caregiver's questions and addressed any concerns. The patient and/or caregivers have as good understanding of the patient's diagnosis, condition and treatment plan as can be expected at this point. The vital signs have been stable. The patient's condition is stable and appropriate for discharge from the emergency department. The patient will pursue further outpatient evaluation with the primary care physician or other designated or consulting physician as outlined in the discharge instructions. The patient and/or caregivers are agreeable to this plan of care and follow-up instructions have been explained in detail. The patient and/or caregivers have received these instruction. The patient/and or caregivers are aware that any significant change in condition or worsening of symptoms should prompt an immediate return to this or the closest emergency department or call 911. Prescriptions: Amoxicillin 500 mg Cap [Amoxil 500 mg] 1,000 mg PO TID 5 Days #30 cap Prednisone 10 mg [Deltasone 10 mg] 40 mg PO DAILY 3 Days #12 tablet Albuterol 8 gm Mdi Hfa [Ventolin Hfa MDI] 8 gm IH Q4H #1 Azithromycin 250 mg [Zithromax 250 MG TABLET] 250 mg PO ZPACK #6 tablet
[2022-03-23] MEDS ORDERED: ROCEPHIN 2 Gm-D5w 50ML BAG** 2 G/50 ML IVPB IV STA (09:22)
[2022-03-23] MEDS ORDERED: Zithromax 500 MG/ 250 ML NaCl Premix 500 MG/250 ML IVPB IV STA (09:22)
[2022-03-23] MEDS ORDERED: Zithromax 500 MG/ 250 ML NaCl Premix 500 MG/250 ML IVPB IV ONE (09:29)
[2022-03-23] MEDS ORDERED: solu-MEDROL ONE (09:29)
[2022-03-23] MEDS ORDERED: ROCEPHIN 2 Gm-D5w 50ML BAG** 2 G/50 ML IVPB IV ONE (09:29)
[2022-03-23] MEDS ORDERED: Sterile H2O 10 ml IJ ONE (09:29)
[2022-03-23 09:41] LABS: Absolute Neutrophil Ct (ANC) 5.06 x10^3/uL (1.4-6.9); Basophil (Absolute #) 0.12 x10^3/uL (0-0.4); Eosinophil % 4.7 % (0.00-5.0); Eosinophil (Absolute #) 0.44 x10^3/uL (0-0.5); Hematocrit 46.5 % (42-50); Hemoglobin 15.3 g/dL (12.5-18.0); Lymphocyte (Absolute #) 2.76 x10^3/uL (1.0-4.6); Lymphocytes % 29.5 % (24.0-44.0); Mean Cell Volume 90.8 fL (78-100); Mean Corpuscular Hemoglobin 29.9 pg (26-32); Mean Corpuscular Hgb Concent. 32.9 g/dL (32-36); Mean Platelet Volume 10.9 fL (7.5-11.0); Monocyte (Absolute #) 0.92 x10^3/uL (0.0-1.3); Monocytes % 9.8 % (0.0-12.0); Neutrophil % 54.2 % (36.0-66.0); Platelet Count 193 x10^3/uL (150-450); Red Blood Count 5.12 x10^6/uL (4.1-5.6); Red Cell Distribution Width 13.8 % (11.5-14.0); White Blood Count 9.4 x10^3/uL (4.0-10.5)
[2022-03-23 10:06] LABS: ALBUMIN 4.5 g/dL (3.5-5.0); ALKALINE PHOSPHATASE 61 U/L (38-126); ANION GAP 13.2 MEQ/L (5-15); BLOOD UREA NITROGEN 21 mg/dL (9-20); CHLORIDE 104 mmol/L (98-107); Calcium 9.4 mg/dL (8.4-10.2); Carbon Dioxide 22 mmol/L (22-30); EST GLOMERULAR FILTRATION RATE > 60.0 ML/MIN; Glucose 104 mg/dL (74-106); NT PRO BNP 21.4 pg/mL (0-900); Potassium 4.2 mmol/L (3.5-5.1); SGOT/AST 30 U/L (17-59); SGPT/ALT 21 U/L (0-50); SODIUM 135 mmol/L (137-145); Total Protein 8.3 g/dL (6.3-8.2)
[2022-03-23 10:12] LABS: INFLUENZA A NEGATIVE (NEGATIVE); INFLUENZA B NEGATIVE (NEGATIVE); RESPIRATORY SYNCTIAL VIRUS NEGATIVE (Negative); SARS-CoV-2 Xpert Express NEGATIVE (NEGATIVE)
[2022-03-23 11:18] VITALS: O2SAT 98
[2022-03-23 11:44] VITALS: BP 158/83; PULSE 82
--- NOTE | 2022-03-23 12:00 | XRAY ---
Indication: Short of breath. Elevated d-dimer. Multiple contiguous images obtained through the chest using 100 cc Isovue 370 contrast and PE protocol. Comparison: None Adequate opacification of the pulmonary arteries. However respiration artifact limits evaluation of the more distal lobar and segmental branches. No central pulmonary embolus. Heart is not enlarged. Aorta is normal in course and caliber. Prominent 1.8 x 1.7 cm right hilar lymph node. Small hiatal hernia. Lungs demonstrates mild bilateral dependent atelectasis. No suspicious pulmonary mass/nodule, infiltrate, effusion, or pneumothorax. Bony thorax demonstrates mild/moderate degenerative changes throughout thoracic spine and incompletely visualized lower cervical fusion. Limited upper abdomen demonstrates 6 mm nonobstructing left mid renal calculus. Impression: 1. Pulmonary embolus evaluation limited by respiration artifact. No obvious central pulmonary embolus. 2. Small hiatal hernia, chronic bony findings, and nonobstructing left renal micro-calculus.
== END 2022-03-23 11:57 | disposition left against medical advice (07) ==
LOC: ED 09:04
DX: J44.1 Chronic obstructive pulmonary disease with (acute) exacerbation (principal); Z91.14 Patient's other noncompliance with medication regimen; R06.02 Shortness of breath; R05.9 Cough, unspecified; I10 Essential (primary) hypertension; E11.9 Type 2 diabetes mellitus without complications; Z28.310 Unvaccinated for COVID-19; Z72.0 Tobacco use; Z79.52 Long term (current) use of systemic steroids; Z79.899 Other long term (current) drug therapy
CPT/HCPCS: 0241U; 36000; 36415; 71260; 80053; 83605; 83880; 84484; 85025; 85379; 87040; 93005; 93041; 94640; 94760; 96365; 96367; 96374; 99284; J0456; J0696; J2930; A9270-GY

== ENCOUNTER 2022-08-29 16:25 | Emergency (ER) | payer MEDICARE ==
--- NOTE | 2022-08-29 16:39 | ERPHSYRPT ---
<REHAN CERVANTES - Last Filed: 08/29/22 20:58> - History of Present Illness Source: patient Exam Limitations: no limitations Timing/Duration: week(s) (2), worse Method of Injury: other (recent surgery) Quality: cramping, stabbing Back Pain Location: lumbar spine Back Pain Radiation: buttocks, upper legs, lower legs, feet Severity of Pain-Max: severe Severity of Pain-Current: severe Modifying Factors: Worsens With: movement Associated Symptoms: numbness in legs/feet, weakness, tingling in legs/feet, lower back pain, No fever, No chills, No urinary incontinence, No loss of bowel control, No nausea, No vomiting, No problems urinating Previous symptoms: same symptoms as today, recently treated (surgery on 08/[address] Grover) Hx Tetanus, Diphtheria Vaccination/Date Given: Yes Hx Influenza Vaccination/Date Given: No Hx Pneumococcal Vaccination/Date Given: No <JAY WHATLEY - Last Filed: 08/31/22 22:33> - History of Present Illness Time Seen by Provider: 08/29/22 16:39 Physician History: Patient is checked out to me at shift change from Dr. Whatley with pending CT lumbar spine. Patient has recent hardware taken out of the lumbar spine almost a month ago presented with increasing pain for the last couple of weeks with radiation to both lower extremities more on the right side than the left. Patient does not have any loss of sensation and is able to ambulate in the ER w ithout any limitations. He has been given Toradol with no significant relief and I have given him morphine and on reevaluation feeling much better. No cauda equina's symptoms currently. CT lumbar spine showed some old changes and I have reviewed the results with Dr. Grover primary orthopedic surgeon for the patient who recommended Solu-Medrol IV and outpatient follow-up early next week. I have discussed with patient lab work and CT imaging results and recommendations of Dr. Haley for outpatient follow-up which he understands and agrees with it. Discussed also in detail about signs symptoms of worsening needing return to ER which he seems understanding. (REHAN CERVANTES) 61yo M presents to the ED w/ worsening back pain s/p lumbar surgery on 08/[address] Grover. Patient reports he had hardware removed and new fusion above that level. He reports 10/10 cramping/stabbing pain that radiates down his right leg w/ associated numbness and tingling. Plantar flexion helps his pain and laying down makes the pain worse. He is taking [place] 10 w/ minimal relief. The pain is so severe that it is waking him up from sleep. He denies F/C/N/V or redness of incision. (JAY WHATLEY) Allergies/Adverse Reactions: bee venom protein (honey bee) Allergy (Verified 08/29/22 16:34) morphine Adverse Reaction (Verified 08/29/22 16:34) Tightness in Chest tramadol Adverse Reaction (Verified 08/29/22 16:34) Home Medications: Carvedilol 3.125 mg [Coreg 3.125 MG] 1 tab PO BID 08/29/22 [History] Lisinopril 20 mg [Zestril 20 MG] 1 tab PO BID 08/29/22 [History] Travel Risk - Vaccine Status Have you recieved a Covid-19 vaccination: No <JAY WHATLEY - Last Filed: 08/31/22 22:33> - Review of Systems Constitutional: No Symptoms Eyes: No Symptoms Ears, Nose, & Throat: No Symptoms Respiratory: No Symptoms Cardiac: No Symptoms Abdominal/Gastrointestinal: No Symptoms Genitourinary Symptoms: No Symptoms Musculoskeletal: Back Pain Skin: No Symptoms Neurological: Sensory Changes, No Focal Weakness, No Gait Changes Psychological: No Symptoms Endocrine: No Symptoms Hematologic/Lymphatic: No Symptoms Immunological/Allergic: No Symptoms All Other Systems: Reviewed and Negative <JAY WHATLEY - Last Filed: 08/31/22 22:33> - Past Medical History Pertinent Past Medical History: Yes Neurological History: No Pertinent History ENT History: No Pertinent History Cardiac History: Angina, Hypertension, Myocardial Infarction ([place]), Peripheral Vascular Disease Respiratory History: No Pertinent History Endocrine Medical History: Diabetes Type II Musculoskeletal History: Other GI Medical History: No Pertinent History History: Other Psycho-Social History: No Pertinent History Male Reproductive Disorders: No Pertinent History Other Medical History: back problems , dvt - Past Surgical History Past Surgical History: Yes Neuro Surgical History: No Pertinent History Cardiac: Cardiac Catheterization, Vascular Surgery Respiratory: No Pertinent History Gastrointestinal: No Pertinent History Genitourinary: No Pertinent History, Other Musculoskeletal: Orthopedic Surgery Male Surgical History: No Pertinent History Other Surgical History: back x3, kidney stone removal, dvt - Social History Smoking Status: Current every day smoker How long have you smoked: years Exposure to second hand smoke: Yes Alcohol Use: None Drug Use: none Patient Lives Alone: No Significant Family History: hypertension <JAY WHATLEY - Last Filed: 08/31/22 22:33> - Physical Exam General Appearance: mild distress Eye Exam: eyes nml inspection Ears, Nose, Throat Exam: normal ENT inspection Neck Exam: normal inspection Respiratory Exam: airway intact, No respiratory distress Cardiovascular Exam: regular rate/rhythm, capillary refill <2 sec Back Exam: vertebral tenderness, decreased range of motion, point tenderness, other (incision healing well w/ no signs of infection) Extremity Exam: parasthesia, No paralysis, No swelling, No tenderness Neurologic Exam: alert, oriented x 3, cooperative, other (2+ patellar reflex b/l, sensation intact to light touch, 5/5 strength b/l LE in all directions) Skin Exam: normal color, warm, dry, No rash SpO2 Interpretation: normal O2 Delivery: Room Air <JAY WHATLEY - Last Filed: 08/31/22 22:33> - Nursing Vital Signs Nursing Vital Signs: Initial Vital Signs Temperature 98.6 F 08/29/22 16:37 Pain Scale Pain Intensity 6 - Course Nursing assessment & vital signs reviewed: Yes <JAY WHATLEY - Last Filed: 08/31/22 22:33> Ordered Tests: Medication Summary Discontinued Medications Generic Name Dose Route Start Last Admin Trade Name Melinda PRN Reason Stop Dose Admin Methylprednisolone Sodium 0 mg 08/29/22 20:37 08/29/22 20:40 Succinate 125 mg/ Sterile IV 08/29/22 20:38 125 mg Water 2 ml STAT ONE Administration Ketorolac Tromethamine 60 mg 08/29/22 19:13 08/29/22 19:32 Ketorolac Tromethamine 30 Mg/Ml Inj IM 08/29/22 19:14 Not Given STAT ONE Ketorolac Tromethamine 30 mg 08/29/22 19:32 08/29/22 19:35 Ketorolac Tromethamine 30 Mg/Ml Inj IV 08/29/22 19:33 30 mg STAT ONE Administration Ketorolac Tromethamine Confirm 08/29/22 19:34 Ketorolac Tromethamine 30 Mg/Ml Inj Administered 08/29/22 19:35 Dose 30 mg .ROUTE .STK-MED ONE Methylprednisolone Sodium Succinate Confirm 08/29/22 20:38 Methylprednis Sod Succ 125 Mg/2 Ml Vial Administered 08/29/22 20:39 Dose 125 mg .ROUTE .STK-MED ONE Morphine Sulfate 4 mg 08/29/22 20:20 08/29/22 20:23 Morphine Sulfate 4 Mg/Ml Injection IV 08/29/22 20:21 4 mg STAT ONE Administration Morphine Sulfate Confirm 08/29/22 20:22 Morphine Sulfate 4 Mg/Ml Injection Administered 08/29/22 20:23 Dose 4 mg .ROUTE .STK-MED ONE Ondansetron HCl 4 mg 08/29/22 20:20 08/29/22 20:23 Ondansetron Hcl 4 Mg/2 Ml Vial IV 08/29/22 20:21 4 mg STAT ONE Administration Ondansetron HCl Confirm 08/29/22 20:21 Ondansetron Hcl 4 Mg/2 Ml Vial Administered 08/29/22 20:22 Dose 4 mg .ROUTE .STK-MED ONE Sterile Water Confirm 08/29/22 20:38 Water For Injection,Sterile 10 Ml Vial Administered 08/29/22 20:39 Dose 10 ml IJ .STK-MED ONE Lab/Rad Data: Laboratory Result Diagrams 08/29/22 17:09 08/29/22 17:09 Laboratory Results 08/29/22 08/29/22 08/29/22 Range/Units 17:09 17:09 17:08 WBC 11.5 H (4.0-10.5) x10^3/uL RBC 4.24 (4.1-5.6) x10^6/uL Hgb 12.9 (12.5-18.0) g/dL Hct 38.9 L (42-50) % MCV 91.7 (78-100) fL MCH 30.4 (26-32) pg MCHC 33.2 (32-36) g/dL RDW 14.0 (11.5-14.0) % Plt Count 262 (150-450) x10^3/uL MPV 9.3 (7.5-11.0) fL Gran % 47.3 (36.0-66.0) % Immature Gran % (Auto) 0.6 H (0.00-0.4) % Nucleat RBC Rel Count 0.0 (0.00-0.1) % Eos # (Auto) 0.47 (0-0.5) x10^3/uL Immature Gran # (Auto) 0.07 H (0.00-0.03) x10^3u/L Absolute Lymphs (auto) 4.37 (1.0-4.6) x10^3/uL Absolute Monos (auto) 1.04 (0.0-1.3) x10^3/uL Absolute Nucleated RBC 0.00 (0.00-0.01) x10^3u/L Lymphocytes % 38.1 (24.0-44.0) % Monocytes % 9.1 (0.0-12.0) % Eosinophils % 4.1 (0.00-5.0) % Basophils % 0.8 (0.0-0.4) % Absolute Granulocytes 5.43 (1.4-6.9) x10^3/uL Basophils # 0.09 (0-0.4) x10^3/uL Sodium 141 (137-145) mmol/L Potassium 4.1 (3.5-5.1) mmol/L Chloride 103 (98-107) mmol/L Carbon Dioxide 26 (22-30) mmol/L Anion Gap 16.0 H (5-15) MEQ/L BUN 16 (9-20) mg/dL Creatinine 1.06 (0.66-1.25) mg/dL Estimated GFR > 60.0 ML/MIN Glucose 101 (74-106) mg/dL Lactic Acid 1.4 (0.4-2.0) Calcium 9.2 (8.4-10.2) mg/dL Total Bilirubin 0.30 (0.2-1.3) mg/dL AST 23 (17-59) U/L ALT 22 (0-50) U/L Alkaline Phosphatase 60 (38-126) U/L Serum Total Protein 7.8 (6.3-8.2) g/dL Albumin 4.3 (3.5-5.0) g/dL - Progress Progress: improved, pain not gone completely Discussed with Dr.: Other (Dr. Haley orthopedic surgery) Counseled pt/family regarding: diagnosis, need for follow-up, rad results <REHAN CERVANTES - Last Filed: 08/29/22 20:58> - Progress Progress: unchanged <JAY WHATLEY - Last Filed: 08/31/22 22:33> - Progress Progress Note: Labs show no signs of infection. CT lumbar spine read pending. Patient given 60mg Toradol for pain. Handoff to Dr. Cervantes at 1900. (JAY WHATLEY) Medical Desision Making - Discussion of managment Care discussed with:: specialist (Dr. Haley) Reviewed:: Test results Agreed on:: Treatment plan, need for follow-up Will see patient: In office - Diagnostic Testing Diagnostic test were ordered, analyzed, and reviewed by me: Yes Radiological Interpretation: Reviewed by me - Risk of complications The pt has a mod risk of morbidity or mortality based on: Need for prescription drug management <REHAN CERVANTES - Last Filed: 08/29/22 20:58> - Departure Departure Disposition: Home Critical Care Time: No <REHAN CERVANTES - Last Filed: 08/29/22 20:58> <JAY WHATLEY - Last Filed: 08/31/22 22:33> - Departure Clinical Impression: Acute exacerbation of chronic low back pain Condition: Stable Referrals: KASSI HARDIN [Primary Care Provider] - Follow up with PCP 2 days PADMINI GROVER [ACTIVE STAFF] - Follow up/PCP as directed (In 3 days) Instructions: Low Back Pain (DC), Sciatica (DC) Additional Instructions: Take pain medications which you have at home. Follow-up with orthopedics surgery as recommended on Wednesday. Return to ER for intractable back pain, numbness tingling weakness of lower extremities, loss of bowel or bladder control/perineal numbness.
[2022-08-29 17:11] LABS: Absolute Neutrophil Ct (ANC) 5.43 x10^3/uL (1.4-6.9); BASOPHIL % 0.8 % (0.0-0.4); Basophil (Absolute #) 0.09 x10^3/uL (0-0.4); Eosinophil % 4.1 % (0.00-5.0); Eosinophil (Absolute #) 0.47 x10^3/uL (0-0.5); Hematocrit 38.9 % (42-50); Hemoglobin 12.9 g/dL (12.5-18.0); IMMATURE GRAN # 0.07 x10^3u/L (0.00-0.03); IMMATURE GRAN % 0.6 % (0.00-0.4); Lymphocyte (Absolute #) 4.37 x10^3/uL (1.0-4.6); Lymphocytes % 38.1 % (24.0-44.0); Mean Cell Volume 91.7 fL (78-100); Mean Corpuscular Hemoglobin 30.4 pg (26-32); Mean Corpuscular Hgb Concent. 33.2 g/dL (32-36); Mean Platelet Volume 9.3 fL (7.5-11.0); Monocyte (Absolute #) 1.04 x10^3/uL (0.0-1.3); Monocytes % 9.1 % (0.0-12.0); Neutrophil % 47.3 % (36.0-66.0); Platelet Count 262 x10^3/uL (150-450); Red Blood Count 4.24 x10^6/uL (4.1-5.6); White Blood Count 11.5 x10^3/uL (4.0-10.5)
[2022-08-29 17:24] LABS: ALBUMIN 4.3 g/dL (3.5-5.0); ALKALINE PHOSPHATASE 60 U/L (38-126); BLOOD UREA NITROGEN 16 mg/dL (9-20); CHLORIDE 103 mmol/L (98-107); Calcium 9.2 mg/dL (8.4-10.2); Carbon Dioxide 26 mmol/L (22-30); Creatinine 1 1.06 mg/dL (0.66-1.25); EST GLOMERULAR FILTRATION RATE > 60.0 ML/MIN; Glucose 101 mg/dL (74-106); Potassium 4.1 mmol/L (3.5-5.1); SGOT/AST 23 U/L (17-59); SGPT/ALT 22 U/L (0-50); SODIUM 141 mmol/L (137-145); Total Protein 7.8 g/dL (6.3-8.2)
[2022-08-29] MEDS ORDERED: TORAdol 30 mg Injection IM ONE (19:13)
--- NOTE | 2022-08-29 19:23 | XRAY ---
CLINICAL HISTORY:Back pain, s/p surgery 08/03/22; COMPARISON:CR 06/15/22; TECHNIQUES:CT scan with contrast of lumbar spine. 80 mL Isovue were administered for post-contrast images. Axial images obtained with reformatted coronal and sagittal images and submitted for interpretation. CTDI: 19.51 mGy, DLP: 573.19 mGy*cm; FINDINGS: Preserved physiological lumbar lordosis. Transitional vertebra noted and is considered L5 for the purpose of study. Grade III (10 mm) anterolisthesis of L5 over S1, with end plates irregularity and prominent bilateral facet joint arthropathies. Posterior fusion hardware with metallic transpedicular screws at L4 and L5, and disc prosthesis L4-L5. Degenerative changes in the visualized spine. Normal vertebral bodies height. Narrowing of intervertebral disc spaces at all levels. No definite fractures could be detected. Segmental disc analysis level by level. L1-L2: No central canal or neuroforaminal stenosis. L2-L3: No central canal or neuroforaminal stenosis. Disc protrusion noted. L3-L4: No central canal or neuroforaminal stenosis. Disc protrusion noted. L4-L5: No central canal or neuroforaminal stenosis. Disc protrusion noted. L5-S1: No central canal or neuroforaminal stenosis. Disc protrusion noted. Bilateral tiny renal calculi. IMPRESSION: Spondylotic changes and multilevel disc space narrowing with facet hypertrophy. Posterior fusion at lower lumbar levels. Grade III anterolisthesis L5-S1 with end plates irregularity and prominent bilateral facet joint arthropathies. Further evaluation with MR is recommended. Bilateral tiny renal calculi. Electronically Signed by: Tushar Shaw MD. (08/29/2022 18:16:05 JORDAN WORKER)
[2022-08-29] MEDS ORDERED: TORAdol 30 mg Injection IV ONE (19:32)
[2022-08-29] MEDS ORDERED: TORAdol 30 mg Injection ONE (19:34)
[2022-08-29] MEDS ORDERED: Zofran 4 MG/2 ML VIAL IV ONE (20:20)
[2022-08-29] MEDS ORDERED: MORPHINE SULFATE 4 MG INJ IV ONE (20:20)
[2022-08-29] MEDS ORDERED: Zofran 4 MG/2 ML VIAL ONE (20:21)
[2022-08-29] MEDS ORDERED: MORPHINE SULFATE 4 MG INJ ONE (20:22)
[2022-08-29] MEDS ORDERED: solu-MEDROL 125 MG, Sterile H2O 10 ml 2 ML IV ONE ×2 (20:37)
[2022-08-29] MEDS ORDERED: Sterile H2O 10 ml IJ ONE (20:38)
[2022-08-29] MEDS ORDERED: solu-MEDROL ONE (20:38)
[2022-08-29 20:46] VITALS: BP 117/73; PULSE 64; O2SAT 97
== END 2022-08-29 21:04 | disposition home or self-care (01) ==
LOC: ED 16:25
DX: G89.29 Other chronic pain (principal); M54.50 Low back pain, unspecified; Z98.1 Arthrodesis status; I10 Essential (primary) hypertension; E11.9 Type 2 diabetes mellitus without complications; Z79.899 Other long term (current) drug therapy; Z28.310 Unvaccinated for COVID-19; Z72.0 Tobacco use
CPT/HCPCS: 36000; 36415; 72131; 80053; 83605; 85025; 87040; 94760; 96374; 96375; 99284; J1885; J2270; J2405; J2930

== ENCOUNTER → 2023-08-10 | Day surgery (SDC) | payer MEDICARE ==
[~2023-08-10] MED LIST: APRESOLINE 20 MG/ML INJ ONE; Astramorph-Pf 5 MG/10 ML ONE; BRIDION 200MG/2ML IV ONE; DEMEROL 50 MG ONE; DEXMEDETOMIDINE 80 MCG/20ML-NS IV ONE; DIPRIVAN 200 MG/20 ML IV ONE; Decadron 4 MG INJ ONE; Ephedrine Sulfate 50 MG/ML ONE; Lactated Ringers 1,000 ML IV ONE; MINERAL OIL LIGHT 10 ML FOR SURGERY ONE; Marcaine Mpf 0.5% Vial 30 Ml ONE; Quelicin Fliptop 200 MG/10 ML ONE; ROCURONIUM BROMIDE IV ONE; SUBLIMAZE 100 MCG/2 ML ONE; TORAdol 30 mg Injection ONE; Thrombin-JMI 5000 UNITS TP ONE; Versed 2 MG/2 ML Injection ONE; XYLOCAINE 1% HCL 20 ML MDV ONE; XYLOCAINE 1%/Epi 1:100000 MDV 20 ML ONE; Xylocaine-Mpf 2% 5 Ml Vial ONE; Zofran 4 MG/2 ML VIAL ONE
[2023-08-10] MEDS: Lactated Ringers 1,000 ML IV SCH (12:42)
[2023-08-10 13:00] LABS: Hemoglobin 14.2 g/dL (12.5-18.0); Mean Cell Volume 90.9 fL (78-100); Mean Corpuscular Hemoglobin 29.3 pg (26-32); Mean Corpuscular Hgb Concent. 32.3 g/dL (32-36); Mean Platelet Volume 9.4 fL (7.5-11.0); Platelet Count 275 x10^3/uL (150-450); Red Blood Count 4.84 x10^6/uL (4.1-5.6); Red Cell Distribution Width 14.9 % (11.5-14.0); White Blood Count 7.4 x10^3/uL (4.0-10.5)
[2023-08-10] MEDS: CEFAZOLIN 2 GM-D5W BAG** 2 GM/50 ML ML IV SCH (13:05)
[2023-08-10] MEDS: PROVENTIL 2.5 MG/3 ML NEB IH ONE (13:07)
[2023-08-10 13:14] LABS: ALBUMIN 4.3 g/dL (3.5-5.0); ANION GAP 15.6 MEQ/L (5-15); BILIRUBIN,TOTAL 0.4 mg/dL (0.2-1.3); Calcium 9.8 mg/dL (8.4-10.2); Creatinine 1 1.45 mg/dL (0.66-1.25); EST GLOMERULAR FILTRATION RATE 54.8 ML/MIN; Potassium 4.4 mmol/L (3.5-5.1); Total Protein 7.8 g/dL (6.3-8.2)
[2023-08-10] MEDS: Pepcid 20 MG VIAL IV ONE (13:20)
[2023-08-10] MEDS: Reglan 10 MG/2 ML IV ONE (13:20)
[2023-08-10 18:18] VITALS: RESP 18; O2SAT 98
[2023-08-10 18:27] VITALS: BP 153/79; PULSE 85; TEMP 96.5
--- NOTE | 2023-08-11 13:24 | OP ---
SURGERY DATE/TIME: 08/10/2023 5222 PREOPERATIVE DIAGNOSES: 1) History of deep venous thrombosis. 2) History of fasciotomy. 3) Peripheral vascular disease. 4) Open wound to left leg. 5) Chronic back pain. 6) Pain left lower limb. POSTOPERATIVE DIAGNOSES: 1) History of deep venous thrombosis. 2) History of fasciotomy. 3) Peripheral vascular disease. 4) Open wound to left leg. 5) Chronic back pain. 6) Pain left lower limb. PROCEDURES: 1) Incision and drainage to level of muscle left leg. 2) Superficial peroneal nerve decompression. 3) Anterior tibial muscle transposition. 4) Synthetic skin substitute. SURGEON: Wade Keith DPM. SENIOR PHP WEB DEVELOPER: None. ANESTHESIA: General. HEMOSTASIS: Pressure dressing. QUANTITATIVE BLOOD LOSS: Approximately 10 cc. MATERIALS: A 4 x 5 Integra graft, surgical man, 3-0 Nylon. INJECTABLES: See anesthesia report for details. INDICATION FOR SURGERY: Noe is a very pleasant 62-year-old male known to my service for a left lower leg wound after he had a vascular intervention for his deep venous thrombosis with a bypass. He developed compartment syndrome, which resulted in a fasciotomy. The patient indicates that the wound was healed. However, the recent history this has scabbed and opened approximately in April of this year. The patient was seen and assessed from a vascular standpoint to be adequate for healing to the left lower extremity before requiring intervention to the right. The patient indicates that the wound has been bigger in a very quick period of time. We have provided wound care for him and had some success. However definitive management is indicated as this wound is becoming chronic and there are some indications of possible infection. The patient at this time understands all risks, complications and benefits of surgical intervention at this time including but not limited to infection, hematoma, seroma, possibility of delayed wound healing, nonwound healing and possible need for further surgical intervention at a later date. No guarantees were provided as to the outcome of surgical intervention. Plenty of time was allowed for the patient to ask questions to his apparent satisfaction. It is at this time we decided to proceed. Prior to bringing the patient into the procedure room, a popliteal block was performed. DESCRIPTION OF PROCEDURE AND FINDINGS: The patient is brought into the OR and placed on the OR table in the supine position. At this time general anesthesia was administered until the patient was adequately sedated. The left lower extremity was prepped and draped in the typical sterile fashion and lowered onto the surgical field. At this time, attention was directed to the wound where under loupe visualization the wound was selectively debrided. The scab was removed and a significant amount of fibrotic tissue was encountered below. Once debriding a good amount of the fibrotic tissue to a healthy vascularized edge, there was a deficit over the medial face of the tibia. At this time, the fascia was incised and the tibialis anterior muscle belly was pulled over the tibial bone in order to provide for coverage and vascularization to this area this was freed utilizing a combination of a 15 blade, blunt dissection was carried out with a [place] and dissection scissors. From that standpoint, this was secured utilizing 2-0 Vicryl in a simple interrupted type fashion to the edge of the wound to help provide vascularity and become a barrier to the bone itself. The wound was inspected distally as well demonstrating a significantly scarred superficial peroneal nerve. Superficial peroneal nerve was identified approximately 11 cm from the ankle joint at the lateral one-third of the Bard with loupe magnification. The bands of Eliezer were very compressed and disrupted on direct visualization. Decompression took place with performing neurolysis and without damaging the nerve any further than the scarification had already done. Once this was performed, the decision was made to proceed with the Integra graft. The Integra graft was placed over the wound which was measured to be 4.7 x 2.1 cm. The graft was secured utilizing surgical man except for the area where the superficial peroneal nerve was encountered which was sutured loosely to prevent any scarification. Following this, copious amounts of sterile saline were utilized to cleanse the leg. A dressing consisting of Adaptic, 4x4, ABD, Kerlix, cast padding and KACI was applied to the right lower extremity. The patient was then reversed from anesthesia and returned to the postoperative anesthesia care unit with vital signs stable and vascular status intact. The patient handled the anesthesia as well as the procedure without significant complication. Postoperative orders as indicated in the patient's discharge chart.
== END ==
LOC: SDC 10:46
PROVIDERS: ATTEND Podiatrist Foot & Ankle Surgery
DX: E11.51 Type 2 diabetes mellitus with diabetic peripheral angiopathy without gangrene (principal); M79.672 Pain in left foot; M54.9 Dorsalgia, unspecified; S81.802A Unspecified open wound, left lower leg, initial encounter; Z87.39 Personal history of other diseases of the musculoskeletal system and connective tissue; Z86.718 Personal history of other venous thrombosis and embolism
CPT/HCPCS: 15275; 15738; 27603; 36415; 64708; 80053; 82947; 85027; 94640; J0330; J0360; J0690; J1100; J1885; J2175; J2250; J2274; J2405; J2704; J3010; J7609; A9270-GY; Q4158